=== PATIENT | female | born 1965 | race Caucasian/White ===

== ENCOUNTER 2017-06-16 15:44 | Observation (INO) | payer OTHER ==
[~2017-06-16] VITALS: Ht 157.5 cm; Wt 83.2 kg
[~2017-06-16 15:44] MED LIST: EST1; MOME50SP5; OMEP40CA
[2017-06-16] MEDS ORDERED: ASPIRIN 81 MG CHEW PO STA (16:04)
[2017-06-16 16:14] LABS: BASO % 0.4 %; BASO ABS # 0.03 K/uL (0-0.2); EOS % 1.4 %; EOS ABS # 0.12 K/uL (0-0.5); HEMATOCRIT 40.7 % (37-47); HEMOGLOBIN 14.5 g/dL (12.0-16.0); IG# 0.01 K/uL (0.00-0.02); LYMPH % 35.7 %; LYMPH ABS # 3.04 K/uL (1.2-3.4); MEAN CELL VOLUME 87.7 fL (80-100); MEAN CORPUSCULAR HEMOGLOBIN 31.3 pg (25-34); MEAN CORPUSCULAR HGB CONC 35.6 g/dl (32-36); MEAN PLATELET VOLUME 8.7 fL (7.4-10.4); MONO % 9.6 %; MONO ABS # 0.82 K/uL (0.11-0.59); NEUT % 52.8 %; NEUT ABS # 4.49 K/uL (1.4-6.5); PLATELET COUNT 359 K/uL (130-400); RED CELL DISTRIBUTION WIDTH CV 12.5 % (11.5-14.5); RED CELL DISTRIBUTION WIDTH SD 40.1 fL (36.4-46.3); WHITE BLOOD COUNT 8.51 K/uL (4.8-10.8)
--- NOTE | 2017-06-16 16:21 | DIAGNOSTIC IMAGING REPORT ---
CHEST ONE VIEW PORTABLE HISTORY: 51 years-old Female CHEST PAIN acute atypical chest pain COMPARISON: None available TECHNIQUE: Portable AP view of the chest FINDINGS: Cardiac mediastinal and hilar silhouettes are within normal limits. There is no pneumothorax, pleural effusion, focal airspace consolidation or overt pulmonary edema. Bones of the chest appear grossly intact. Degenerative changes of the shoulders and spine. IMPRESSION: No acute process. The above report was generated using voice recognition software. It may contain grammatical, syntax or spelling errors. Electronically signed by: Erick Dc M.D. 06/16/2017 4:20 PM Dictated Date/Time: 06/16/2017 4:19 PM
[2017-06-16 16:22] LABS: PTT PATIENT 24.8 SECONDS (21.0-31.0)
[2017-06-16 16:33] LABS: ALBUMIN 3.6 gm/dl (3.4-5.0); CREATININE 0.6 mg/dl (0.60-1.20); POTASSIUM 3.6 mmol/L (3.5-5.1)
[2017-06-16] MEDS: NITROGLYCERIN 0.4 MG SL PER TAB CHARGE SL PRN ×4 (16:35→21:39)
[2017-06-16 16:38] LABS: TOTAL PROTEIN 7.2 gm/dl (6.4-8.2)
[2017-06-16] MEDS ORDERED: LISI-461 PO (16:38)
[2017-06-16] MEDS ORDERED: ESTR2TAB PO (16:38)
[2017-06-16] MEDS ORDERED: PROBCAP PO (16:38)
[2017-06-16] MEDS ORDERED: FRS/40 PO (16:38)
[2017-06-16] MEDS ORDERED: LYSI500C2 PO (16:38)
[2017-06-16] MEDS ORDERED: TRIA55SP NAE (16:38)
[2017-06-16] MEDS ORDERED: POTA-65 PO (16:38)
--- NOTE | 2017-06-16 16:40 | EMERGENCY ROOM VISIT NOTE ---
History Report prepared by Albert: Kumar Jaimes Under the Supervision of: Dr. Vinay Llamas M.D. First contact with patient: 15:52 Chief Complaint: CARDIAC ASSESSMENT Stated Complaint: CHEST HEAVINESS, SOB, DISCOMFORT History of Present Illness The patient is a 51 year old female who presents to the Emergency Room with complaints of intermittent chest pain beginning a few days ago. She describes her pain as a feeling of "heaviness". She also complains of SOB and pain radiating up her neck into her jaw. The patient woke up with her symptoms, and they have been constant since. She rates her pain as an 8/10 in severity. Nothing improves her pain. Pt denies LOC, headache, fevers, chills, diaphoresis , visual changes, tearing pain radiating to the back, personal history or family history of aneurysm or pulmonary embolism, uncontrolled hypertension, leg swelling, coagulation abnormalities, prolonged travel, recent surgery or immobilization, nausea, vomiting, abdominal pain, melena, hematochezia, urinary symptoms, numbness, weakness, lymphadenopathy, rash, or other complaints. She is scheduled for a stress test next week. Her PCP is aware of her chest pain over the past few days, and told the patient to present to the ED today when her symptoms became constant. Source of History: patient Onset: A few days ago Position: chest Symptom Intensity: 8/10 Quality: other ("heaviness") Timing: intermittent Modifying Factors (Relieving): other (none) Associated Symptoms: + SOB Review of Systems See HPI for pertinent positives and negatives. A total of ten systems were reviewed and were otherwise negative. Past Medical & Surgical Medical Problems: (1) Hypertension (2) Skin cancer of face Surgical Problems: (1) S/P cholecystectomy (2) S/P hysterectomy (3) S/P lumbar spinal fusion Family History No pertinent family history stated. Social History Smoking Status: Never Smoker Marital Status: Housing Status: lives with family Current/Historical Medications Scheduled Estradiol (Estradiol), 2 MG PO DAILY Furosemide (Lasix), 40 MG PO DAILY Lisinopril (Zestril), 10 MG PO DAILY Potassium Chloride (Potassium Chloride ER), 20 MEQ PO DAILY Probiotic Product (Trip[employer]), 1 CAP PO DAILY Scheduled PRN Lysine (Lysine), 500 MG PO UD PRN for Cold Sores Triamcinolone Acetonide (Nasal ([facility] Nasal Allergy [place]), 2 SPRAYS GENET DAILY PRN for Allergy Symptoms Allergies Coded Allergies: Bupropion (Verified Allergy, Unknown, 03/22/09) Codeine (Verified Allergy, Unknown, 03/22/09) Oxycodone (Verified Allergy, Unknown, 03/22/09) Penicillins (Verified Allergy, Unknown, 03/22/09) Physical Exam Vital Signs Date Time Temp Pulse Resp B/P (MAP) Pulse Ox O2 Delivery O2 Flow Rate FiO2 06/16/17 16:45 80 142/85 06/16/17 16:40 80 144/85 06/16/17 16:36 75 14 150/93 98 Room Air 06/16/17 16:08 81 06/16/17 16:05 98 Room Air 06/16/17 16:05 97 Room Air 06/16/17 15:46 36.6 80 20 164/100 97 Room Air Physical Exam GENERAL: Awake, alert, well-appearing, in no distress HENT: Normocephalic, atraumatic. Oropharynx unremarkable. EYES: Normal conjunctiva. Sclera non-icteric. NECK: Supple. No nuchal rigidity. FROM. No masses. RESPIRATORY: Clear to auscultation. No wheezes. No rales. Normal respiratory effort. CARDIAC: Normal rate. Normal rhythm. No murmurs. No rubs. Extremities warm and well perfused. Pulses equal. No JVD. GI: Soft, non-distended. No tenderness to palpation. No rebound or guarding. No masses. RECTAL: Deferred. MUSCULOSKELETAL: Atraumatic. Chest examination reveals mild left costal margin tenderness. The back is symmetrical on inspection without obvious abnormality. There is no CVA tenderness to palpation. No joint edema. LOWER EXTREMITIES: Calves are equal size bilaterally and non-tender. Trace edema bilaterally. No discoloration. NEURO: Normal sensorium. No sensory or motor deficits noted. SKIN: No rash or jaundice noted. Medical Decision & Procedures ER Provider Diagnostic Interpretation: Radiology results as stated below per my review and radiologist interpretation: CHEST ONE VIEW PORTABLE FINDINGS: Cardiac mediastinal and hilar silhouettes are within normal limits. There is no pneumothorax, pleural effusion, focal airspace consolidation or overt pulmonary edema. Bones of the chest appear grossly intact. Degenerative changes of the shoulders and spine. IMPRESSION: No acute process. The above report was generated using voice recognition software. It may contain grammatical, syntax or spelling errors. Electronically signed by: Erick Dc M.D. 06/16/2017 4:20 PM Laboratory Results 06/16/17 16:00 Red Blood Count 4.64, Mean Corpuscular Volume 87.7, Mean Corpuscular Hemoglobin 31.3, Mean Corpuscular Hemoglobin Concent 35.6, Mean Platelet Volume 8.7, Neutrophils (%) (Auto) 52.8, Lymphocytes (%) (Auto) 35.7, Monocytes (%) (Auto) 9.6, Eosinophils (%) (Auto) 1.4, Basophils (%) (Auto) 0.4, Neutrophils # (Auto) 4.49, Lymphocytes # (Auto) 3.04, Monocytes # (Auto) 0.82, Eosinophils # (Auto) 0.12, Basophils # (Auto) 0.03 06/16/17 16:00 Test 06/16/17 16:00 06/16/17 16:07 White Blood Count 8.51 K/uL (4.8-10.8) Red Blood Count 4.64 M/uL (4.2-5.4) Hemoglobin 14.5 g/dL (12.0-16.0) Hematocrit 40.7 % (37-47) Mean Corpuscular Volume 87.7 fL (80-100) Mean Corpuscular Hemoglobin 31.3 pg (25-34) Mean Corpuscular Hemoglobin Concent 35.6 g/dl (32-36) Platelet Count 359 K/uL (130-400) Mean Platelet Volume 8.7 fL (7.4-10.4) Neutrophils (%) (Auto) 52.8 % Lymphocytes (%) (Auto) 35.7 % Monocytes (%) (Auto) 9.6 % Eosinophils (%) (Auto) 1.4 % Basophils (%) (Auto) 0.4 % Neutrophils # (Auto) 4.49 K/uL (1.4-6.5) Lymphocytes # (Auto) 3.04 K/uL (1.2-3.4) Monocytes # (Auto) 0.82 K/uL (0.11-0.59) Eosinophils # (Auto) 0.12 K/uL (0-0.5) Basophils # (Auto) 0.03 K/uL (0-0.2) RDW Standard Deviation 40.1 fL (36.4-46.3) RDW Coefficient of Variation 12.5 % (11.5-14.5) Immature Granulocyte % (Auto) 0.1 % Immature Granulocyte # (Auto) 0.01 K/uL (0.00-0.02) Prothrombin Time 10.0 SECONDS (9.0-12.0) Prothromb Time International Ratio 1.0 (0.9-1.1) Activated Partial Thromboplast Time 24.8 SECONDS (21.0-31.0) Partial Thromboplastin Ratio 1.0 Anion Gap 5.0 mmol/L (3-11) Est Creatinine Clear Calc Drug Dose 109.3 ml/min Estimated GFR () 120.6 Estimated GFR (Non- 104.1 BUN/Creatinine Ratio 21.8 (10-20) Calcium Level 9.0 mg/dl (8.5-10.1) Total Bilirubin 0.3 mg/dl (0.2-1) Direct Bilirubin 0.1 mg/dl (0-0.2) Aspartate Amino Transf (AST/SGOT) 15 U/L (15-37) Alanine Aminotransferase (ALT/SGPT) 19 U/L (12-78) Alkaline Phosphatase 76 U/L (45-117) Total Creatine Kinase 32 U/L (26-192) Creatine Kinase MB 1.0 ng/ml (0.5-3.6) Creatine Kinase MB Ratio 3.1 (0-3.0) Total Protein 7.2 gm/dl (6.4-8.2) Albumin 3.6 gm/dl (3.4-5.0) Lipase 119 U/L (73-393) Bedside D-Dimer 444 ng/mlFEU (0-450) Bedside Troponin I < 0.030 ng/ml (0-0.045) Laboratory results reviewed by me Medications Administered Medications (Trade) Dose Ordered Sig/Monica Route Start Time Stop Time Status Last Admin Dose Admin Aspirin (Aspirin Chew) 324 mg NOW STAT PO 06/16/17 16:04 06/16/17 16:06 DC 06/16/17 16:34 324 MG Nitroglycerin (Nitrostat Tab) 0.4 mg Q5M PRN SL 06/16/17 16:15 07/16/17 16:14 06/16/17 16:45 0.4 MG Acetaminophen (Tylenol Tab) 1,000 mg NOW STAT PO 06/16/17 17:17 06/16/17 17:18 DC 06/16/17 17:22 1,000 MG ECG Per My Interpretation Indication: chest pain Rate (beats per minute): 80 Rhythm: normal sinus Findings: Q waves (Septal), left axis deviation, other (LVH.) ED Course 1601: The patient was evaluated in room A4B. A complete history and physical exam was performed. 1604: Ordered Aspirin Chew 324 mg PO. 1615: Ordered Nitrostat Tab 0.4 mg SL. 1717: Ordered Tylenol Tab 1000 mg PO. 1720: Upon reexamination, the patient was resting comfortably. I discussed the test results and treatment plan with her. The patient will be evaluated for further management. Medical Decision Triage Nursing notes reviewed and agree them. Additional history obtained from the family. The patient's history was concerning for chest pain. Differential diagnosis: Etiologies such as cardiac ischemia, aortic dissection, pulmonary embolism, pneumonia, pneumothorax, musculoskeletal, infections, pericarditis, myocarditis , esophageal rupture, gastrointestinal, as well as others were entertained. Physical examination: As above. ER treatment provided: Oral aspirin Sublingual nitroglycerin 3 On reassessment the patient felt better. Diagnostic interpretation by me: The electrocardiogram was negative for pathologic change. The labs revealed an unremarkable CBC and chemistry panel. A d-dimer was performed and it was negative. Based on Wells criteria and a negative dimer no further imaging for PE was performed. Imaging studies: Chest x-ray as above Patient had resolution of her chest pain with 3 nitroglycerin. She was comfortable. Given the history and treatment here for the management in the hospital will be necessary. Consultation: A consultation was placed with the hospitalist. The case was discussed and diagnostics were reviewed. The patient was evaluated in the ER for further treatment. Medication Reconcilliation Current Medication List: was personally reviewed by me Blood Pressure Screening Patient's blood pressure: Elevated blood pressure Blood pressure disposition: Referred to PCP Consults Consulting Physician: Dr. Chikis Lackey Impression Primary Impression: Substernal chest pain Scribe Attestation The scribe's documentation has been prepared under my direction and personally reviewed by me in its entirety. I confirm that the note above accurately reflects all work, treatment, procedures, and medical decision making performed by me. Departure Information Dispostion Being Evaluated By Hospitalist Referrals Larry Landry M.D. (PCP) Patient Instructions My [facility]
[2017-06-16] MEDS ORDERED: ACETAMINOPHEN 500 MG TAB PO STA (17:17)
[2017-06-16] MEDS ORDERED: ACETAMINOPHEN 325 MG TAB PO PRN (18:15)
[2017-06-16] MEDS ORDERED: ONDANSETRON INJ 2 MG/ML 2 ML VIAL IV PRN (18:15)
[2017-06-16] MEDS ORDERED: TRIAMCINOLONE ACET NASAL SPRAY 10.8ML BTL NAE PRN (18:30)
--- NOTE | 2017-06-16 18:33 | History and Physical ---
History & Physical Date & Time of Service: June 16, 2017 at 18:20 Chief Complaint: Chest Heaviness, Sob, Discomfort Primary Care Physician: Zoran Rebollar M.D.(JOYCE) History of Present Illness Source: patient She is a 51-year-old white female without significant past medical history except hypertension apparently has been complaining of chest heaviness with pain associated with dizziness and shortness of breath and sweating for the last 2 weeks. The symptoms has been on and off and sometimes aggravated by physical activity. Today after cleaning the house she has had severe pain associated with dizziness, shortness of breath and the pain radiated to the neck on the right side. The pain was relieved to some extent with sublingual nitro 2. Her initial EKG, chest x-ray and cardiac enzymes were unremarkable. Given the pain suggestive of angina she was admitted to telemetry unit for observation and possible stress test tomorrow morning Past Medical/Surgical History Medical Problems: (1) Chest pain (2) Hypertension (3) Skin cancer of face Surgical Problems: (1) S/P cholecystectomy (2) S/P hysterectomy (3) S/P lumbar spinal fusion Family History Family history significant for father has asthma and also diabetes and her mother has hypertension and thyroid disorder Social History Smoking Status: Never Smoker Smokeless Tobacco Use: No Drug Use: none Marital Status: Housing status: lives with significant other Immunizations History of Tetanus Vaccine?: Yes Allergies Coded Allergies: Bupropion (Verified Allergy, Unknown, 03/22/09) Codeine (Verified Allergy, Unknown, 03/22/09) Oxycodone (Verified Allergy, Unknown, 03/22/09) Penicillins (Verified Allergy, Unknown, 03/22/09) Home Medications Scheduled Estradiol (Estradiol), 2 MG PO DAILY Furosemide (Lasix), 40 MG PO DAILY Lisinopril (Zestril), 10 MG PO DAILY Potassium Chloride (Potassium Chloride ER), 20 MEQ PO DAILY Probiotic Product ([employer]), 1 CAP PO DAILY Scheduled PRN Lysine (Lysine), 500 MG PO UD PRN for Cold Sores Triamcinolone Acetonide (Nasal ([facility] Nasal Allergy [place]), 2 SPRAYS GENET DAILY PRN for Allergy Symptoms Review of Systems Constitutional: + sweats Respiratory: + shortness of breath Cardiovascular: + chest pain Physical Exam Vital Signs Date Time Temp Pulse Resp B/P (MAP) Pulse Ox O2 Delivery O2 Flow Rate FiO2 06/16/17 16:45 80 142/85 06/16/17 16:40 80 144/85 06/16/17 16:36 75 14 150/93 98 Room Air 06/16/17 16:08 81 06/16/17 16:05 98 Room Air 06/16/17 16:05 97 Room Air 06/16/17 15:46 36.6 80 20 164/100 97 Room Air General Appearance: no apparent distress Head: normocephalic Eyes: normal inspection ENT: normal ENT inspection Neck: supple Respiratory/Chest: chest non-tender, lungs clear, normal breath sounds Cardiovascular: regular rate, rhythm, no edema, no gallop Abdomen/GI: normal bowel sounds, non tender, soft, no organomegaly Back: normal inspection Extremities/Musculoskelatal: normal inspection Neurologic/Psych: no motor/sensory deficits Skin: normal color Lymphatic: no adenopathy Diagnostics Laboratory Results Results Past 24 Hours Test 06/16/17 16:00 06/16/17 16:07 Range/Units White Blood Count 8.51 4.8-10.8 K/uL Red Blood Count 4.64 4.2-5.4 M/uL Hemoglobin 14.5 12.0-16.0 g/dL Hematocrit 40.7 37-47 % Mean Corpuscular Volume 87.7 80-100 fL Mean Corpuscular Hemoglobin 31.3 25-34 pg Mean Corpuscular Hemoglobin Concent 35.6 32-36 g/dl Platelet Count 359 130-400 K/uL Mean Platelet Volume 8.7 7.4-10.4 fL Neutrophils (%) (Auto) 52.8 % Lymphocytes (%) (Auto) 35.7 % Monocytes (%) (Auto) 9.6 % Eosinophils (%) (Auto) 1.4 % Basophils (%) (Auto) 0.4 % Neutrophils # (Auto) 4.49 1.4-6.5 K/uL Lymphocytes # (Auto) 3.04 1.2-3.4 K/uL Monocytes # (Auto) 0.82 0.11-0.59 K/uL Eosinophils # (Auto) 0.12 0-0.5 K/uL Basophils # (Auto) 0.03 0-0.2 K/uL RDW Standard Deviation 40.1 36.4-46.3 fL RDW Coefficient of Variation 12.5 11.5-14.5 % Immature Granulocyte % (Auto) 0.1 % Immature Granulocyte # (Auto) 0.01 0.00-0.02 K/uL Prothrombin Time 10.0 9.0-12.0 SECONDS Prothromb Time International Ratio 1.0 0.9-1.1 Activated Partial Thromboplast Time 24.8 21.0-31.0 SECONDS Partial Thromboplastin Ratio 1.0 Sodium Level 138 136-145 mmol/L Potassium Level 3.6 3.5-5.1 mmol/L Chloride Level 104 98-107 mmol/L Carbon Dioxide Level 29 21-32 mmol/L Anion Gap 5.0 3-11 mmol/L Blood Urea Nitrogen 13 7-18 mg/dl Creatinine 0.60 0.60-1.20 mg/dl Est Creatinine Clear Calc Drug Dose 109.3 ml/min Estimated GFR () 120.6 Estimated GFR (Non- 104.1 BUN/Creatinine Ratio 21.8 10-20 Random Glucose 89 70-99 mg/dl Calcium Level 9.0 8.5-10.1 mg/dl Total Bilirubin 0.3 0.2-1 mg/dl Direct Bilirubin 0.1 0-0.2 mg/dl Aspartate Amino Transf (AST/SGOT) 15 15-37 U/L Alanine Aminotransferase (ALT/SGPT) 19 12-78 U/L Alkaline Phosphatase 76 45-117 U/L Total Creatine Kinase 32 26-192 U/L Creatine Kinase MB 1.0 0.5-3.6 ng/ml Creatine Kinase MB Ratio 3.1 0-3.0 Total Protein 7.2 6.4-8.2 gm/dl Albumin 3.6 3.4-5.0 gm/dl Lipase 119 73-393 U/L Bedside D-Dimer 444 0-450 ng/mlFEU Bedside Troponin I < 0.030 0-0.045 ng/ml CXR normal Normal EKG Impression Assessment and Plan CHEST PAIN Presentation seems to be atypical Pain has been going on for last 2 weeks off and on with and without exertion Initial EKG and troponin unremarkable Will observe in telemetry unit Serial cardiac enzymes, EKG and stress echo in the morning if ruled out Will give nitro for pain control and other symptomatic medications HYPERTENSION Has been on lisinopril Blood pressure is controlled Continue lisinopril We will hold furosemide and potassium for now ALLERGIC RHINITIS No acute symptoms Continue nasal spray DVT prophylaxis with Lovenox CODE STATUS-she will be full code In my clinical assessment the beneficially meets criteria as per CMS for 2 MIDNIGHT STAY in the hospital Resuscitation Status VTE Prophylaxis Will order VTE Prophylaxis: Yes
[2017-06-16] MEDS ORDERED: IV FLUIDS COMPLETED PRN (19:00)
[2017-06-16] MEDS ORDERED: NSS + 20MEQ KCL 1000ML 1,000 ML IV SCH (21:00)
[2017-06-16 21:17] VITALS: BP 123/73; PULSE 68; TEMP 36.6; O2SAT 96; Ht 157.5 cm; Wt 83.2 kg
[2017-06-16] MEDS ORDERED: TRAMADOL HCL 50 MG TAB PO PRN (21:30)
[2017-06-16] MEDS ORDERED: MoRPHine SULFATE 2 MG/ML CARP IV PRN (21:30)
[2017-06-16] MEDS: ENOXAPARIN 40 MG/0.4 ML SYR SC SCH (21:34)
[2017-06-16 23:10] VITALS: BP 114/70; PULSE 72; TEMP 36.5; O2SAT 97
[2017-06-17] VITALS (10 sets, daily range): BP systolic 99–146; BP diastolic 63–88; PULSE 64–74; TEMP 36.4–36.7; O2SAT 95–97
[2017-06-17 06:55] LABS: HEMATOCRIT 37.6 % (37-47); HEMOGLOBIN 13.1 g/dL (12.0-16.0); MEAN CELL VOLUME 88.5 fL (80-100); MEAN CORPUSCULAR HEMOGLOBIN 30.8 pg (25-34); MEAN CORPUSCULAR HGB CONC 34.8 g/dl (32-36); MEAN PLATELET VOLUME 8.5 fL (7.4-10.4); PLATELET COUNT 294 K/uL (130-400); RED CELL DISTRIBUTION WIDTH CV 12.5 % (11.5-14.5); RED CELL DISTRIBUTION WIDTH SD 40.1 fL (36.4-46.3); WHITE BLOOD COUNT 5.03 K/uL (4.8-10.8)
[2017-06-17 07:32] LABS: CALCIUM 8.1 mg/dl (8.5-10.1); CREATININE 0.54 mg/dl (0.60-1.20); POTASSIUM 3.8 mmol/L (3.5-5.1)
[2017-06-17] MEDS: NITROGLYCERIN 0.4 MG SL PER TAB CHARGE SL PRN ×2 (07:57→08:03)
[2017-06-17] MEDS ORDERED: METOPROLOL TARTRATE 25 MG TAB PO ONE (11:40)
[2017-06-17] MEDS ORDERED: PANTOprazole SOD 40 MG TAB PO STA (11:47)
--- NOTE | 2017-06-17 11:47 | Progress Note ---
Internal Med Progress Note Date of Service: June 17, 2017. Provider Documentation: SUBJECTIVE: The patient was seen and examined in telemetry unit. She was admitted with chest pain on and off for the last 2 weeks and the pain got worse yesterday She has had some pain this morning again but EKG and cardiac enzymes remained unremarkable Has had stress echo this morning and that is negative OBJECTIVE: Vital Signs-as noted below Exam: General-no apparent distress Eyes-normal ENT-normal Neck-supple Lungs-clear to auscultate bilaterally Heart-regular Abdomen-benign, soft, nontender, bowel sounds present Extremities-negative for any edema Neuro-alert, awake and oriented 3 No focal neuro deficit Lab data as noted below. ASSESSMENT & PLAN: CHEST PAIN Presentation seems to be atypical Pain has been going on for last 2 weeks off and on with and without exertion Initial EKG and troponin unremarkable Will observe in telemetry unit Serial cardiac enzymes, EKG and stress echo in the morning if ruled out Status post stress echo this morning Hypertensive response with some chest pain but negative EKG and echocardiogram We will put her 1 small dose of beta-genoveva and observe overnight HYPERTENSION Has been on lisinopril Blood pressure is controlled Continue lisinopril We will hold furosemide and potassium for now Blood pressure is controlled, hypertensive response with stress echo Small dose of beta-genoveva added for better control of blood pressure ALLERGIC RHINITIS No acute symptoms Continue nasal spray DVT prophylaxis with Lovenox CODE STATUS-she will be full code Likely home this evening or tomorrow morning Vital Signs: Date Time Temp Pulse Resp B/P (MAP) Pulse Ox O2 Delivery O2 Flow Rate FiO2 06/17/17 08:15 36.6 67 18 130/80 (97) 96 06/17/17 08:10 71 137/79 (98) 06/17/17 08:03 74 146/81 (102) 06/17/17 07:57 70 133/88 (103) 06/17/17 04:00 36.5 67 16 107/67 (80) 97 Nasal Cannula 1.0 06/17/17 04:00 97 Nasal Cannula 1.0 06/17/17 00:01 96 Nasal Cannula 1.0 06/16/17 23:10 36.5 72 18 114/70 (85) 97 Nasal Cannula 1.0 06/16/17 21:17 36.6 68 20 123/73 96 Room Air 06/16/17 19:28 70 20 114/70 99 06/16/17 18:29 73 20 127/78 98 Room Air 06/16/17 16:45 80 142/85 06/16/17 16:40 80 144/85 06/16/17 16:36 75 14 150/93 98 Room Air 06/16/17 16:08 81 06/16/17 16:05 98 Room Air 06/16/17 16:05 97 Room Air 06/16/17 15:46 36.6 80 20 164/100 97 Room Air Lab Results: Results Past 24 Hours Test 06/16/17 16:00 06/16/17 16:07 06/16/17 19:14 06/17/17 00:20 Range/Units White Blood Count 8.51 4.8-10.8 K/uL Red Blood Count 4.64 4.2-5.4 M/uL Hemoglobin 14.5 12.0-16.0 g/dL Hematocrit 40.7 37-47 % Mean Corpuscular Volume 87.7 80-100 fL Mean Corpuscular Hemoglobin 31.3 25-34 pg Mean Corpuscular Hemoglobin Concent 35.6 32-36 g/dl Platelet Count 359 130-400 K/uL Mean Platelet Volume 8.7 7.4-10.4 fL Neutrophils (%) (Auto) 52.8 % Lymphocytes (%) (Auto) 35.7 % Monocytes (%) (Auto) 9.6 % Eosinophils (%) (Auto) 1.4 % Basophils (%) (Auto) 0.4 % Neutrophils # (Auto) 4.49 1.4-6.5 K/uL Lymphocytes # (Auto) 3.04 1.2-3.4 K/uL Monocytes # (Auto) 0.82 0.11-0.59 K/uL Eosinophils # (Auto) 0.12 0-0.5 K/uL Basophils # (Auto) 0.03 0-0.2 K/uL RDW Standard Deviation 40.1 36.4-46.3 fL RDW Coefficient of Variation 12.5 11.5-14.5 % Immature Granulocyte % (Auto) 0.1 % Immature Granulocyte # (Auto) 0.01 0.00-0.02 K/uL Prothrombin Time 10.0 9.0-12.0 SECONDS Prothromb Time International Ratio 1.0 0.9-1.1 Activated Partial Thromboplast Time 24.8 21.0-31.0 SECONDS Partial Thromboplastin Ratio 1.0 Sodium Level 138 136-145 mmol/L Potassium Level 3.6 3.5-5.1 mmol/L Chloride Level 104 98-107 mmol/L Carbon Dioxide Level 29 21-32 mmol/L Anion Gap 5.0 3-11 mmol/L Blood Urea Nitrogen 13 7-18 mg/dl Creatinine 0.60 0.60-1.20 mg/dl Est Creatinine Clear Calc Drug Dose 109.3 ml/min Estimated GFR () 120.6 Estimated GFR (Non- 104.1 BUN/Creatinine Ratio 21.8 10-20 Random Glucose 89 70-99 mg/dl Calcium Level 9.0 8.5-10.1 mg/dl Total Bilirubin 0.3 0.2-1 mg/dl Direct Bilirubin 0.1 0-0.2 mg/dl Aspartate Amino Transf (AST/SGOT) 15 15-37 U/L Alanine Aminotransferase (ALT/SGPT) 19 12-78 U/L Alkaline Phosphatase 76 45-117 U/L Total Creatine Kinase 32 26-192 U/L Creatine Kinase MB 1.0 0.5-3.6 ng/ml Creatine Kinase MB Ratio 3.1 0-3.0 Total Protein 7.2 6.4-8.2 gm/dl Albumin 3.6 3.4-5.0 gm/dl Lipase 119 73-393 U/L Bedside D-Dimer 444 0-450 ng/mlFEU Bedside Troponin I < 0.030 0-0.045 ng/ml Troponin I < 0.015 < 0.015 0-0.045 ng/ml Test 06/17/17 06:35 06/17/17 08:28 Range/Units White Blood Count 5.03 4.8-10.8 K/uL Red Blood Count 4.25 4.2-5.4 M/uL Hemoglobin 13.1 12.0-16.0 g/dL Hematocrit 37.6 37-47 % Mean Corpuscular Volume 88.5 80-100 fL Mean Corpuscular Hemoglobin 30.8 25-34 pg Mean Corpuscular Hemoglobin Concent 34.8 32-36 g/dl RDW Standard Deviation 40.1 36.4-46.3 fL RDW Coefficient of Variation 12.5 11.5-14.5 % Platelet Count 294 130-400 K/uL Mean Platelet Volume 8.5 7.4-10.4 fL Sodium Level 137 136-145 mmol/L Potassium Level 3.8 3.5-5.1 mmol/L Chloride Level 107 98-107 mmol/L Carbon Dioxide Level 28 21-32 mmol/L Anion Gap 2.0 3-11 mmol/L Blood Urea Nitrogen 14 7-18 mg/dl Creatinine 0.54 0.60-1.20 mg/dl Est Creatinine Clear Calc Drug Dose 121.2 ml/min Estimated GFR () 124.9 Estimated GFR (Non- 107.7 BUN/Creatinine Ratio 25.3 10-20 Random Glucose 93 70-99 mg/dl Calcium Level 8.1 8.5-10.1 mg/dl Magnesium Level 2.0 1.8-2.4 mg/dl Troponin I < 0.015 < 0.015 0-0.045 ng/ml
[2017-06-17] MEDS ORDERED: NURSING VERBAL MED ORDER ONE (12:15)
[2017-06-17] MEDS: LISINOPRIL 10 MG TAB PO SCH (13:15)
[2017-06-17] MEDS: ASPIRIN 81 MG ECTAB PO SCH (13:15)
--- NOTE | 2017-06-17 13:20 | EXERCISE STRESS ECHO ---
*NOTICE TO RECEIVING LIBERTARIAN AGENCY This information is strictly Confidential and protected under [place] law. [place] law prohibits you from making any further disclosure of this information unless further disclosure is expressly permitted by the written consent of the person to whom it pertains or is authorized by law. A general authorization for the release of medical or other information is not sufficient for this purpose. Hospital accepts no responsibility if the information is made available to any other person, INCLUDING THE PATIENT. Interpretation Summary * Name: MICKY TONY Study Date: 06/17/2017 09:41 AM BP: 141/83 mmHg * Patient Location: C.2T\S\S241\S\2 HR: 74 * : 1965 (M/d/yyyy) Gender: Female Height: 62 in * Age: 51 yrs Ethnicity: [place] Weight: 186 lb * Ordering Physician: Deirdre Salazar * Referring Physician: Self, Referred * Performed By: America Neal R[facility] * * Reason For Study: Chest Pain * BSA: 1.9 m2 * Exercise capacity is average. * The stress echocardiogram is negative for inducible ischemia. * -- Conclusions -- * Resting wall motion: Normal. Stress wall motion: Appropriate increase in Left ventricular systolic function and decrease in cavity size. No stress induced segmental wall motion abnormalities. * Stress ECG: No ST changes. No arrhythmias. * Patient experienced chest pain and dizziness throughout the stress test with chest pain worsening in the recovery phase. Blood pressure and heart rate response was normal and EKG and echocardiographic imaging revealed no acute changes during complaints Procedure Details * ECHOEX, CPT #[id number] * ECHO COLOR FLOW, CPT #[id number] * ECHO DOPPLER, CPT #[id number] Left Ventricle * The left ventricle is normal in size. * There is borderline concentric left ventricular hypertrophy. * Ejection Fraction = 55-60%. * Left ventricular systolic function is normal. * The left ventricular wall motion is normal at rest. * The left ventricular ejection fraction increases normally with stress. The left ventricular end-systolic cavity size reduces post-stress (normal response). The left ventricular wall motion with stress is normal. * Resting wall motion: Normal. Stress wall motion: Appropriate increase in Left ventricular systolic function and decrease in cavity size. No stress induced segmental wall motion abnormalities. Right Ventricle * The right ventricle is normal in size and function. Atria * The left atrial size is normal. * Right atrial size is normal. * No ASD detected; PFO is not assessed. Mitral Valve * The mitral valve is normal. * There is no mitral valve stenosis. * Significant mitral regurgitation is absent. Tricuspid Valve * The tricuspid valve is normal. * There is no tricuspid stenosis. * Significant tricuspid regurgitation is absent. Aortic Valve * The aortic valve is trileaflet. * Aortic valve sclerosis mild, without significant aortic valvular stenosis. * Aortic stenosis is absent. * Trace aortic regurgitation. Pulmonic Valve * The pulmonary valve is not well seen, but the Doppler examination is normal without significant regurgitation or stenosis. Great Vessels * The aortic root and proximal ascending aorta are normal sized. Pericardium * There is no pericardial effusion. Stress Parameters * Normal baseline electrocardiogram. * Stress ECG: No ST changes. No arrhythmias. * The stress portion of this study was personally supervised by the undersigned interpreting physician. * Rest heart rate was '74' BPM. * Rest blood pressure was '141/83' * Maximum heart rate achieved was 150 bpm. * Maximum heart rate was 89 % of maximum age-predicted heart rate. * Maximum blood pressure was '182/93' * Total exercise time was '4:36' * Maximum exercise MET level achieved was '6.5' METS * Maximum treadmill speed was '2.5' miles per hour. * Maximum treadmill elevation was '12'% grade. * Exercise was terminated due to 'fatigue after achieving target heart rate' * Patient experienced chest pain and dizziness throughout the stress test with chest pain worsening in the recovery phase. Blood pressure and heart rate response was normal and EKG and echocardiographic imaging revealed no acute changes during complaints Left Ventricular Diastolic Function * Grade I diastolic dysfunction, (abnormal relaxation pattern). MMode 2D Measurements and Calculations IVSd 0.97 cm IVSs 1.3 cm LVIDd 4.6 cm LVIDs 2.7 cm LVPWd 0.94 cm LVPWs 1.3 cm IVS/LVPW 1.0 FS 41.1 % EDV(Teich) 95.7 ml ESV(Teich) 26.7 ml EF(Teich) 72.1 % EDV(cubed) 95.3 ml ESV(cubed) 19.4 ml EF(cubed) 79.6 % % IVS thick 37.1 % % LVPW thick 34.2 % LV mass(C)d 148.2 grams LV mass(C)dI 80.0 grams/m\S\2 LV mass(C)s 107.6 grams LV mass(C)sI 58.0 grams/m\S\2 SV(Teich) 69.0 ml SI(Teich) 37.2 ml/m\S\2 SV(cubed) 75.9 ml SI(cubed) 40.9 ml/m\S\2 Ao root diam 3.5 cm Ao root area 9.7 cm\S\2 ACS 2.1 cm LA dimension 4.1 cm asc Aorta Diam 3.4 cm LA/Ao 1.2 LVAd ap4 37.5 cm\S\2 LVLd ap4 8.5 cm EDV(MOD-sp4) 134.9 ml EDV(sp4-el) 139.8 ml LVAs ap4 24.2 cm\S\2 LVLs ap4 7.3 cm ESV(MOD-sp4) 66.5 ml ESV(sp4-el) 67.9 ml EF(MOD-sp4) 50.7 % EF(sp4-el) 51.4 % LVAd ap2 30.7 cm\S\2 LVLd ap2 8.0 cm EDV(MOD-sp2) 100.4 ml EDV(sp2-el) 100.1 ml LVAs ap2 18.4 cm\S\2 LVLs ap2 6.6 cm ESV(MOD-sp2) 45.6 ml ESV(sp2-el) 43.4 ml EF(MOD-sp2) 54.6 % EF(sp2-el) 56.7 % LVLd %diff -6.47 % EDV(MOD-bp) 120.4 ml LVLs %diff -10.21 % ESV(MOD-bp) 58.2 ml EF(MOD-bp) 51.7 % SV(MOD-sp4) 68.5 ml SI(MOD-sp4) 36.9 ml/m\S\2 SV(MOD-sp2) 54.8 ml SI(MOD-sp2) 29.6 ml/m\S\2 SV(MOD-bp) 62.2 ml SI(MOD-bp) 33.6 ml/m\S\2 SV(sp4-el) 71.9 ml SI(sp4-el) 38.8 ml/m\S\2 SV(sp2-el) 56.7 ml SI(sp2-el) 30.6 ml/m\S\2 Doppler Measurements and Calculations MV E max dante 69.0 cm/sec MV A max dante 92.3 cm/sec MV E/A 0.75 MV P1/2t max dante 81.4 cm/sec MV P1/2t 71.0 msec MVA(P1/2t) 3.1 cm\S\2 MV dec slope 336.0 cm/sec\S\2 MV dec time 0.30 sec Ao V2 max 143.4 cm/sec Ao max PG 8.2 mmHg Ao max PG (full) 4.2 mmHg AI max dante 491.3 cm/sec AI max PG 96.7 mmHg AI dec slope 277.8 cm/sec\S\2 AI P1/2t 518.0 msec LV V1 max PG 4.0 mmHg LV V1 max 100.5 cm/sec PA V2 max 89.7 cm/sec PA max PG 3.2 mmHg PI max dante 141.5 cm/sec PI max PG 8.0 mmHg PI dec slope 99.5 cm/sec\S\2 PI P1/2t 416.5 msec TR max dante 188.1 cm/sec
[2017-06-17] MEDS: METOPROLOL TARTRATE 25 MG TAB PO SCH (21:33)
[2017-06-17] MEDS: ENOXAPARIN 40 MG/0.4 ML SYR SC SCH (21:33)
[2017-06-18 03:34] VITALS: BP 101/65; PULSE 70; TEMP 36.6; O2SAT 97
[2017-06-18 07:01] VITALS: BP 120/79; PULSE 67; TEMP 36.7; O2SAT 96
[2017-06-18] MEDS: ASPIRIN 81 MG ECTAB PO SCH (07:39)
[2017-06-18] MEDS: METOPROLOL TARTRATE 25 MG TAB PO SCH (07:39)
[2017-06-18] MEDS: LISINOPRIL 10 MG TAB PO SCH (07:40)
[2017-06-18] MEDS ORDERED: PANTOprazole SOD 40 MG TAB PO SCH (09:00)
[2017-06-18 10:53] VITALS: BP 124/82; PULSE 62; TEMP 36.6; O2SAT 98
--- NOTE | 2017-06-18 11:18 | Progress Note ---
Internal Med Progress Note Date of Service: June 18, 2017. Provider Documentation: SUBJECTIVE: The patient was seen and examined in telemetry unit. She was admitted with chest pain on and off for the last 2 weeks and the pain got worse yesterday She has had some pain this morning again but EKG and cardiac enzymes remained unremarkable Has had stress echo this morning and that is negative 06/18 No more chest pain reported Denies any symptoms this AM Ready to be discharged OBJECTIVE: Vital Signs-as noted below Exam: General-no apparent distress Eyes-normal ENT-normal Neck-supple Lungs-clear to auscultate bilaterally Heart-regular Abdomen-benign, soft, nontender, bowel sounds present Extremities-negative for any edema Neuro-alert, awake and oriented 3 No focal neuro deficit Lab data as noted below. ASSESSMENT & PLAN: CHEST PAIN Presentation seems to be atypical Pain has been going on for last 2 weeks off and on with and without exertion Initial EKG and troponin unremarkable Will observe in telemetry unit Serial cardiac enzymes, EKG and stress echo in the morning if ruled out Status post stress echo this morning Hypertensive response with some chest pain but negative EKG and echocardiogram We will put her 1 small dose of beta-genoveva and observe overnight Stress ECHO:: * Resting wall motion: Normal. Stress wall motion: Appropriate increase in Left ventricular systolic function and decrease in cavity size. No stress induced segmental wall motion abnormalities. * Stress ECG: No ST changes. No arrhythmias. * Patient experienced chest pain and dizziness throughout the stress test with chest pain worsening in the recovery phase. Blood pressure and heart rate response was normal and EKG and echocardiographic imaging revealed no acute changes during complaints Denies any more chest pain Ready to go home today HYPERTENSION Has been on lisinopril Blood pressure is controlled Continue lisinopril We will hold furosemide and potassium for now Blood pressure is controlled, hypertensive response with stress echo Small dose of beta-genoveva added for better control of blood pressure ALLERGIC RHINITIS No acute symptoms Continue nasal spray DVT prophylaxis with Lovenox CODE STATUS-she will be full code Likely home this evening or tomorrow morning Discharge today Vital Signs: Date Time Temp Pulse Resp B/P (MAP) Pulse Ox O2 Delivery O2 Flow Rate FiO2 06/18/17 07:01 36.7 67 20 120/79 (93) 96 Room Air 06/18/17 03:34 36.6 70 16 101/65 (77) 97 06/17/17 23:51 36.4 68 18 99/63 (75) 97 06/17/17 19:12 36.6 64 20 118/82 (94) 97 Room Air 06/17/17 15:29 36.7 68 20 120/84 (96) 95 06/17/17 11:55 36.6 72 19 120/73 (89) 96
[2017-06-18] MEDS ORDERED: NTRSLP4 SL (11:21)
[2017-06-18] MEDS ORDERED: LPR25 PO (11:21)
--- NOTE | 2017-06-18 11:22 | Discharge Instructions ---
Discharge Instructions Date of Service June 18, 2017. Admission Reason for Admission: Chest Pain Discharge Discharge Diagnosis / Problem: Chest pain-negative Stress ECHO Discharge Goals Goal(s): Prevent Disease Progression Activity Recommendations Activity Limitations: resume your previous activity . Instructions / Follow-Up Instructions / Follow-Up Please keep appointment with your [facility] Current Hospital Diet Patient's current hospital diet: AHA Diet (Heart Healthy) Discharge Diet Recommended Diet: Regular Diet Pending Studies Studies pending at discharge: no Medical Emergencies . Who to Call and When: Medical Emergencies: If at any time you feel your situation is an emergency, please call 911 immediately. . Non-Emergent Contact Non-Emergency issues call your: Primary Care Provider . Past History Medical & Surgical History: (1) Substernal chest pain (2) Hypertension (3) Skin cancer of face (4) S/P cholecystectomy (5) S/P lumbar spinal fusion (6) S/P hysterectomy . "Provider Documentation" section prepared by Deirdre Salazar. .
[2017-06-18 12:03] VITALS: BP 124/82; PULSE 62; TEMP 36.6; O2SAT 98
--- NOTE | 2017-06-18 17:03 | Discharge Summary ---
Discharge Summary Date of Service June 18, 2017. Discharge Summary Admission Date: June 16, 2017 at 18:16 Discharge Date: June 18, 2017 Discharge Disposition: Home Principal Diagnosis: Chest pain-negative Stress ECHO Secondary Diagnoses/Problems: Please see H&P and Hospital progress note Medication Reconciliation New Medications: Metoprolol Tartrate (Lopressor) 25 Mg Tab 12.5 MG PO BID for 30 Days, #30 TAB Nitroglycerin (Nitrostat) 0.4 Mg/1 Tab Subl 0.4 MG SL UD PRN for Chest Pain for 30 Days, #25 TAB Continued Medications: Estradiol (Estradiol) 2 Mg Tab 2 MG PO DAILY, TAB Furosemide (Lasix) 40 Mg Tab 40 MG PO DAILY, TAB Lisinopril (Zestril) 10 Mg Tab 10 MG PO DAILY, TAB Lysine (Lysine) 500 Mg Cap 500 MG PO UD PRN for Cold Sores TAKE PER PACKAGE DIRECTIONS Potassium Chloride (Potassium Chloride ER) 20 Meq Tab 20 MEQ PO DAILY Probiotic Product (Creative Allies) 1 Cap Cap 1 CAP PO DAILY Triamcinolone Acetonide (Nasal ([facility] Nasal Allergy [place]) 55 Mcg/Act Spr 2 SPRAYS GENET DAILY PRN for Allergy Symptoms Admission Information HPI (per Admitting provider): She is a 51-year-old white female without significant past medical history except hypertension apparently has been complaining of chest heaviness with pain associated with dizziness and shortness of breath and sweating for the last 2 weeks. The symptoms has been on and off and sometimes aggravated by physical activity. Today after cleaning the house she has had severe pain associated with dizziness, shortness of breath and the pain radiated to the neck on the right side. The pain was relieved to some extent with sublingual nitro 2. Her initial EKG, chest x-ray and cardiac enzymes were unremarkable. Given the pain suggestive of angina she was admitted to telemetry unit for observation and possible stress test tomorrow morning Past Medical/Surgical History Medical Problems: (1) Chest pain (2) Hypertension (3) Skin cancer of face Surgical Problems: (1) S/P cholecystectomy (2) S/P hysterectomy (3) S/P lumbar spinal fusion Family History Family history significant for father has asthma and also diabetes and her mother has hypertension and thyroid disorder Social History Smoking Status: Never Smoker Smokeless Tobacco Use: No Drug Use: none Marital Status: Housing status: lives with significant other Immunizations History of Tetanus Vaccine?: Yes Allergies Coded Allergies: Bupropion (Verified Allergy, Unknown, 03/22/09) Codeine (Verified Allergy, Unknown, 03/22/09) Oxycodone (Verified Allergy, Unknown, 03/22/09) Penicillins (Verified Allergy, Unknown, 03/22/09) Home Medications Scheduled Estradiol (Estradiol), 2 MG PO DAILY Furosemide (Lasix), 40 MG PO DAILY Lisinopril (Zestril), 10 MG PO DAILY Potassium Chloride (Potassium Chloride ER), 20 MEQ PO DAILY Probiotic Product (Creative Allies), 1 CAP PO DAILY Scheduled PRN Lysine (Lysine), 500 MG PO UD PRN for Cold Sores Triamcinolone Acetonide (Nasal ([facility] Nasal Allergy [place]), 2 SPRAYS GENET DAILY PRN for Allergy Symptoms Review of Systems Constitutional: + sweats Respiratory: + shortness of breath Cardiovascular: + chest pain Physical Exam H&P v2 Physical Exam Vital Signs Date Time Temp Pulse Resp B/P (MAP) Pulse Ox O2 Delivery O2 Flow Rate FiO2 06/16/17 16:45 80 142/85 06/16/17 16:40 80 144/85 06/16/17 16:36 75 14 150/93 98 Room Air 06/16/17 16:08 81 06/16/17 16:05 98 Room Air 06/16/17 16:05 97 Room Air 06/16/17 15:46 36.6 80 20 164/100 97 Room Air General Appearance: no apparent distress Head: normocephalic Eyes: normal inspection ENT: normal ENT inspection Neck: supple Respiratory/Chest: chest non-tender, lungs clear, normal breath sounds Cardiovascular: regular rate, rhythm, no edema, no gallop Abdomen/GI: normal bowel sounds, non tender, soft, no organomegaly Back: normal inspection Extremities/Musculoskelatal: normal inspection Neurologic/Psych: no motor/sensory deficits Skin: normal color Lymphatic: no adenopathy Diagnostics H&P v2 Diagnostics Laboratory Results Results Past 24 Hours Test 06/16/17 16:00 06/16/17 16:07 Range/Units White Blood Count 8.51 4.8-10.8 K/uL Red Blood Count 4.64 4.2-5.4 M/uL Hemoglobin 14.5 12.0-16.0 g/dL Hematocrit 40.7 37-47 % Mean Corpuscular Volume 87.7 80-100 fL Mean Corpuscular Hemoglobin 31.3 25-34 pg Mean Corpuscular Hemoglobin Concent 35.6 32-36 g/dl Platelet Count 359 130-400 K/uL Mean Platelet Volume 8.7 7.4-10.4 fL Neutrophils (%) (Auto) 52.8 % Lymphocytes (%) (Auto) 35.7 % Monocytes (%) (Auto) 9.6 % Eosinophils (%) (Auto) 1.4 % Basophils (%) (Auto) 0.4 % Neutrophils # (Auto) 4.49 1.4-6.5 K/uL Lymphocytes # (Auto) 3.04 1.2-3.4 K/uL Monocytes # (Auto) 0.82 0.11-0.59 K/uL Eosinophils # (Auto) 0.12 0-0.5 K/uL Basophils # (Auto) 0.03 0-0.2 K/uL RDW Standard Deviation 40.1 36.4-46.3 fL RDW Coefficient of Variation 12.5 11.5-14.5 % Immature Granulocyte % (Auto) 0.1 % Immature Granulocyte # (Auto) 0.01 0.00-0.02 K/uL Prothrombin Time 10.0 9.0-12.0 SECONDS Prothromb Time International Ratio 1.0 0.9-1.1 Activated Partial Thromboplast Time 24.8 21.0-31.0 SECONDS Partial Thromboplastin Ratio 1.0 Sodium Level 138 136-145 mmol/L Potassium Level 3.6 3.5-5.1 mmol/L Chloride Level 104 98-107 mmol/L Carbon Dioxide Level 29 21-32 mmol/L Anion Gap 5.0 3-11 mmol/L Blood Urea Nitrogen 13 7-18 mg/dl Creatinine 0.60 0.60-1.20 mg/dl Est Creatinine Clear Calc Drug Dose 109.3 ml/min Estimated GFR () 120.6 Estimated GFR (Non- 104.1 BUN/Creatinine Ratio 21.8 10-20 Random Glucose 89 70-99 mg/dl Calcium Level 9.0 8.5-10.1 mg/dl Total Bilirubin 0.3 0.2-1 mg/dl Direct Bilirubin 0.1 0-0.2 mg/dl Aspartate Amino Transf (AST/SGOT) 15 15-37 U/L Alanine Aminotransferase (ALT/SGPT) 19 12-78 U/L Alkaline Phosphatase 76 45-117 U/L Total Creatine Kinase 32 26-192 U/L Creatine Kinase MB 1.0 0.5-3.6 ng/ml Creatine Kinase MB Ratio 3.1 0-3.0 Total Protein 7.2 6.4-8.2 gm/dl Albumin 3.6 3.4-5.0 gm/dl Lipase 119 73-393 U/L Bedside D-Dimer 444 0-450 ng/mlFEU Bedside Troponin I < 0.030 0-0.045 ng/ml CXR normal Normal EKG Impression H&P v2 Impression Assessment and Plan CHEST PAIN Presentation seems to be atypical Pain has been going on for last 2 weeks off and on with and without exertion Initial EKG and troponin unremarkable Will observe in telemetry unit Serial cardiac enzymes, EKG and stress echo in the morning if ruled out Will give nitro for pain control and other symptomatic medications HYPERTENSION Has been on lisinopril Blood pressure is controlled Continue lisinopril We will hold furosemide and potassium for now ALLERGIC RHINITIS No acute symptoms Continue nasal spray DVT prophylaxis with Lovenox CODE STATUS-she will be full code In my clinical assessment the beneficially meets criteria as per CMS for 2 MIDNIGHT STAY in the hospital Resuscitation Status VTE Prophylaxis Will order VTE Prophylaxis: Yes Physical Exam (per Admitting): General Appearance: no apparent distress Head: normocephalic Eyes: normal inspection ENT: normal ENT inspection Neck: supple Respiratory/Chest: chest non-tender, lungs clear, normal breath sounds Cardiovascular: regular rate, rhythm, no edema, no gallop Abdomen/GI: normal bowel sounds, non tender, soft, no organomegaly Back: normal inspection Extremities/Musculoskelatal: normal inspection Neurologic/Psych: no motor/sensory deficits Skin: normal color Lymphatic: no adenopathy Hospital Course CHEST PAIN Presentation seems to be atypical Pain has been going on for last 2 weeks off and on with and without exertion Initial EKG and troponin unremarkable Will observe in telemetry unit Serial cardiac enzymes, EKG and stress echo in the morning if ruled out Status post stress echo this morning Hypertensive response with some chest pain but negative EKG and echocardiogram We will put her 1 small dose of beta-genoveva and observe overnight Stress ECHO:: * Resting wall motion: Normal. Stress wall motion: Appropriate increase in Left ventricular systolic function and decrease in cavity size. No stress induced segmental wall motion abnormalities. * Stress ECG: No ST changes. No arrhythmias. * Patient experienced chest pain and dizziness throughout the stress test with chest pain worsening in the recovery phase. Blood pressure and heart rate response was normal and EKG and echocardiographic imaging revealed no acute changes during complaints Denies any more chest pain Ready to go home today HYPERTENSION Has been on lisinopril Blood pressure is controlled Continue lisinopril We will hold furosemide and potassium for now Blood pressure is controlled, hypertensive response with stress echo Small dose of beta-genoveva added for better control of blood pressure ALLERGIC RHINITIS No acute symptoms Continue nasal spray DVT prophylaxis with Lovenox CODE STATUS-she will be full code Likely home this evening or tomorrow morning Discharge today Total time spent on discharge = 35 minutes This includes examination of the patient, discharge planning, medication reconciliation, and communication with other providers. Discharge Instructions Date of Service June 18, 2017. Admission Reason for Admission: Chest Pain Discharge Discharge Diagnosis / Problem: Chest pain-negative Stress ECHO Discharge Goals Goal(s): Prevent Disease Progression Activity Recommendations Activity Limitations: resume your previous activity . Instructions / Follow-Up Instructions / Follow-Up Please keep appointment with your [facility] Current Hospital Diet Patient's current hospital diet: AHA Diet (Heart Healthy) Discharge Diet Recommended Diet: Regular Diet Pending Studies Studies pending at discharge: no Medical Emergencies . Who to Call and When: Medical Emergencies: If at any time you feel your situation is an emergency, please call 911 immediately. . Non-Emergent Contact Non-Emergency issues call your: Primary Care Provider . Past History Medical & Surgical History: (1) Substernal chest pain (2) Hypertension (3) Skin cancer of face (4) S/P cholecystectomy (5) S/P lumbar spinal fusion (6) S/P hysterectomy . "Provider Documentation" section prepared by Deirdre Salazar. . <Electronically signed by Deirdre Salazar M.D.> Additional Copies To Zoran Rebollar M.D. ([facility])
== END 2017-06-18 13:47 | disposition home or self-care (01) ==
LOC: C.EDB 15:45 → C.2T 18:16 → ENRESERV 19:19
PROVIDERS: ADMIT Internal Medicine; ATTEND Internal Medicine
DX: R07.9 Chest pain, unspecified (principal); I10 Essential (primary) hypertension; Z90.49 Acquired absence of other specified parts of digestive tract; Z90.710 Acquired absence of both cervix and uterus; Z98.890 Other specified postprocedural states; Z85.828 Personal history of other malignant neoplasm of skin; Z79.899 Other long term (current) drug therapy; Z88.5 Allergy status to narcotic agent; Z88.0 Allergy status to penicillin

== ENCOUNTER → 2017-09-17 | Outpatient (CLI) | payer OTHER ==
[~2017-09-17] MED LIST changes: -EST1; +ESTR2TAB PO; +LISI-461 PO; +LYSI500C2 PO; +METO25TA56 PO; -MOME50SP5; +NTRGSL/4 UT; -OMEP40CA; +POTA-65 PO; +PROBCAP PO; +PRVHFAIN INH; +TRIA55SP NAE
[2017-09-17 18:44] LABS: BASO % 0.4 %; BASO ABS # 0.03 K/uL (0-0.2); EOS % 2.2 %; EOS ABS # 0.18 K/uL (0-0.5); HEMATOCRIT 39.7 % (37-47); HEMOGLOBIN 13.9 g/dL (12.0-16.0); IG# 0.01 K/uL (0.00-0.02); LYMPH ABS # 3.45 K/uL (1.2-3.4); MEAN CELL VOLUME 88.2 fL (80-100); MEAN CORPUSCULAR HEMOGLOBIN 30.9 pg (25-34); MONO % 8.6 %; MONO ABS # 0.71 K/uL (0.11-0.59); NEUT % 46.7 %; NEUT ABS # 3.84 K/uL (1.4-6.5); PLATELET COUNT 326 K/uL (130-400); RED CELL DISTRIBUTION WIDTH CV 12.7 % (11.5-14.5); RED CELL DISTRIBUTION WIDTH SD 40.9 fL (36.4-46.3); WHITE BLOOD COUNT 8.22 K/uL (4.8-10.8)
[2017-09-17 18:53] LABS: INR 0.9 (0.9-1.1); PTT PATIENT 25.4 SECONDS (21.0-31.0)
[2017-09-17 19:12] LABS: ALBUMIN 3.3 gm/dl (3.4-5.0); ALKALINE PHOSPHATASE 71 U/L (45-117); ALT/SGPT 18 U/L (12-78); AST/SGOT 16 U/L (15-37); BLOOD UREA NITROGEN 12 mg/dl (7-18); CALCIUM 9.1 mg/dl (8.5-10.1); CARBON DIOXIDE 30 mmol/L (21-32); CREATININE 0.56 mg/dl (0.60-1.20); GLUCOSE 82 mg/dl (70-99); POTASSIUM 3.5 mmol/L (3.5-5.1); SODIUM 136 mmol/L (136-145); TOTAL PROTEIN 7.4 gm/dl (6.4-8.2)
== END | disposition home or self-care (01) ==
LOC: C.LAB 17:11
PROVIDERS: ATTEND Internal Medicine Pulmonary Disease
DX: J30.1 Allergic rhinitis due to pollen (principal)

== ENCOUNTER 2017-09-24 06:24 | Day surgery (SDC) | payer OTHER ==
[~2017-09-24] VITALS: Ht 157.5 cm; Wt 85.0 kg
[2017-09-24] VITALS (7 sets, daily range): BP systolic 121–141; BP diastolic 73–91; PULSE 63–106; TEMP 36.4–36.5; O2SAT 93–97; Ht 157.5 cm; Wt 85.0 kg
--- NOTE | 2017-09-24 08:04 | Pre Sedation Assessment ---
Pre Sedation Assessment General Date of Sedation: Sep 24, 2017. Vital Signs Past 12 Hours Date Time Temp Pulse Resp B/P (MAP) Pulse Ox O2 Delivery O2 Flow Rate FiO2 09/24/17 06:53 36.4 63 18 135/81 (99) 96 Room Air Pre-Sedation Airway Assessment Smoking Status: Never Smoker Hx of Sleep Apnea: Yes Short Thick Neck: No Thyro-mental Distance: > 3 Finger Breadths Oral Cavity: Capped Teeth Mallampati Classification: Class II ASA Classification: Class II NPO Status Date of Last Intake of Fluids: Sep 23, 2017 Time of Last Intake of Fluids: 1899 Date of Last Intake of Solids: Sep 23, 2017 Time of Last Intake of Solids: 1899 Procedure Planning Contraindications for Sedation: None Current Medications Reviewed: Yes Notes The planned sedation has been discussed with the patient. Informed Consent was obtained. I have identified the patient, determined the appropriateness of sedation and have assessed the patient immediately prior to the procedure. All medicine(s) and interventions are by my order.
--- NOTE | 2017-09-24 08:04 | History & Physical Bridge Note ---
H&P Re-Evaluation Bridge Note: I have examined the patient, reviewed the History & Physical and in the interval since the performance of the History & Physical I have noted the following changes of clinical significance: No changes noted
[2017-09-24] MEDS ORDERED: MIDAZOLAM HCL 5 MG/ML 1 ML VIAL IV ONE (08:42)
[2017-09-24] MEDS ORDERED: LIDOCAINE 4% INH SOLN 4 ML BTL INH ONE (08:42)
[2017-09-24] MEDS ORDERED: FENTANYL CITRATE INJ 50 MCG/1 ML 2 ML VIAL IV ONE (08:42)
[2017-09-24] MEDS ORDERED: LEVALBUTEROL 1.25MG/3ML NEB INH ONE (08:42)
[2017-09-24] MEDS ORDERED: OXYMETAZOLINE HCL 0.05% NA SPR 15 ML BTL ONE (08:42)
[2017-09-24] MEDS ORDERED: LIDOCAINE VISCOUS 2% 100ML TOP ONE (08:42)
--- NOTE | 2017-09-24 08:42 | [facility] Operative Report ---
Operative Report Operative Date Sep 24, 2017. Pre-Operative Diagnosis Chronic Asthma Post-Operative Diagnosis Chronic Asthma Procedure(s) Performed Bronchoscopy with Bronchial Alveolar Lavage Surgeon Dr. Najera Analysis Consultant Surgeon(s) None Estimated Blood Loss 0 Findings Chronic Mucopurulent Bronchitis Specimens Right and Left Bronchial Washings Complication(s) None Disposition I attest to the content of the Intraoperative Record and any orders documented therein. Any exceptions are noted below.
--- NOTE | 2017-09-24 08:43 | Post Sedation Assessment ---
Post Sedation Assessment General Date of Sedation Sep 24, 2017. Vital Signs: Vital Signs Past 12 Hours Date Time Temp Pulse Resp B/P (MAP) Pulse Ox O2 Delivery O2 Flow Rate FiO2 09/24/17 08:35 88 14 156/82 100 Mask 10 09/24/17 08:30 85 14 155/87 100 Mask 10 09/24/17 08:25 76 12 144/99 100 Mask 8 09/24/17 08:20 71 14 147/101 100 Mask 8 09/24/17 08:15 67 14 153/81 100 Mask 8 09/24/17 06:53 36.4 63 18 135/81 (99) 96 Room Air Post Procedure Recovery Score Activity: (2) Moves 4 extremities * Respiration: (2) Deep breath/cough Circulation: (2) +/-20% PreAnes Value Consciousness: (1) Arouseable (by name) Oxygen Saturation: (1) O2 needed for >90% Post Anesthesia Score: 8 Discharge Sedation Level of Care: Fast Track Phase II Post Sedation Plan On clinical assessment, the patient appears to have tolerated the sedation without complications. Patient is recovering as anticipated. Patient will continue to be monitored by nursing and may be discharged when sedation discharge criteria are met per below protocol. Upon Completions of procedure and additional 15 minutes continue every 5 minute vital signs and the P.A.R. score; then discharge to a Phase I or Fast Track to Phase II per the following guidelines: * Discharge Patient to appropriate Phase II area if PAR is 8 or greater or return to pre- procedure baseline. The post - procedure orders will be as directed. * If PAR score is less than 8 or not return to pre-procedure baseline then patient will follow Phase I monitoring till PAR is reached for Phase II. The Phase I may be done in procedure room or may call to secure a Phase I area. * If naloxone or flumazenil are used for reversal, hold in Phase I for an additional 60 -120 minutes before discharge to Phase II. Please call the Sedation Physician to re-evaluate and complete post-note for discharge to Phase II area. Do NOT discharge from procedure sedation or Phase 1 until post- sedation evaluation note is complete by procedure /sedation MD Sedation Discharge Instructions to be given to the patient at discharge to home.
--- NOTE | 2017-09-24 08:44 | Discharge Instructions ---
Discharge Instructions Date of Service Sep 24, 2017. Admission Reason for Admission: Shortness Of Breath, Asthma Discharge Discharge Diagnosis / Problem: Chronic Mucopurulent Bronchitis Discharge Goals Goal(s): Diagnostic testing Activity Recommendations Activity Limitations: resume your previous activity Lifting Limitations: none Exercise/Sports Limitations: none May Resume Sexual Activity: when tolerated Shower/Bathe: no limitations Driving or Machine Use: resume 1 day after discharge None . Current Hospital Diet Patient's current hospital diet: Discharge Diet Recommended Diet: Regular Diet Fluid Restriction: None Procedures Procedures Performed: Bronchoscopy with Bronchial Alveolar Lavage Pending Studies Studies pending at discharge: no Medical Emergencies . Who to Call and When: Medical Emergencies: If at any time you feel your situation is an emergency, please call 911 immediately. . Non-Emergent Contact Non-Emergency issues call your: Medical Front Desk Specialist Call Non-Emergent contact if: temperature is above 101 . . "Provider Documentation" section prepared by Emmett Najera. .
--- NOTE | 2017-09-24 09:59 | OPERATIVE REPORT ---
DATE OF OPERATION: 09/24/2017 PROCEDURE: Fiberoptic bronchoscopy with bronchoalveolar lavage. INDICATIONS: Persistent chest tightness and dyspnea. ANESTHESIA PREOPERATIVELY: None. ANESTHESIA DURING PROCEDURE: 100 mcg IV fentanyl, 5 mg IV Versed, 20 mL 2% Xylocaine spray above and below the cords, 4% viscous Xylocaine intranasally. DESCRIPTION OF PROCEDURE: Fiberoptic bronchoscope was inserted through right naris and passed low the true vocal cords. The cords appeared to approximate normally with phonation without evidence of lesions or paralysis. The area was anesthetized with 2% Xylocaine spray, and the scope was then introduced in the trachea and right and left tracheobronchial tree. Immediately visible was multiple mucus plugs adherent to the tracheal marquez that were lavaged until clear. The ryan was sharp. The right mainstem bronchus was explored initially, no endobronchial lesion seen. The right upper lobe, the apical posterior and anterior segments, bronchus intermedius, right middle lobe, medial lateral segments, and all basilar segments of right lower lobe were found to be free of endobronchial lesions. Small mucus plugs were lavaged from all lobar segments until looked clear. Mucous pitting was prominently displayed throughout the right tracheobronchial tree. The left tracheobronchial tree was explored and no endobronchial lesion seen. Left upper lobe, the apical posterior and anterior segments, lingual subdivision, and left lower lobe were free of endobronchial lesions down to subsegmental bronchi, with same degree of mucous plugging seen involving the left lower lobe with this time mild to moderate degree of global inflammatory mucosal change. After copiously lavaging each lobar segment and sending the aspirate for appropriate studies, no brushings or biopsies were deemed necessary. Fluoroscopy was not utilized. Procedure was terminated. Patient was given a nebulizer treatment with Xopenex 1.25 mg and transferred to the same day surgery hemodynamically stable, no signs of respiratory compromise. We will await microbiological and cytologic examination of the bronchial washings. I attest to the content of the Intraoperative Record and any orders documented therein. Any exception s are noted below.
[2017-09-28 14:28] LABS: HERPES SIMPLEX VIRUS CULT NOT ISOLATED (NOT ISOLATED)
== END 2017-09-24 11:10 | disposition home or self-care (01) ==
LOC: C.ACU 06:24
PROVIDERS: ATTEND Internal Medicine Pulmonary Disease
DX: R06.00 Dyspnea, unspecified (principal); R07.89 Other chest pain

== ENCOUNTER → 2017-09-30 | Outpatient (CLI) | payer OTHER ==
--- NOTE | 2017-09-30 12:57 | DIAGNOSTIC IMAGING REPORT ---
THORACIC SPINE 3 VIEWS ROUTINE HISTORY: Pain BACK PAIN COMPARISON: None. FINDINGS: There is no fracture. No subluxation. Disc spaces are preserved. IMPRESSION: No fracture or subluxation within the thoracic spine. The above report was generated using voice recognition software. It may contain grammatical, syntax or spelling errors. Electronically signed by: Chi Lei M.D. 09/30/2017 12:56 PM Dictated Date/Time: 09/30/2017 12:55 PM
--- NOTE | 2017-09-30 13:00 | DIAGNOSTIC IMAGING REPORT ---
RIBS BILATERAL WITH PA CHEST CLINICAL HISTORY: BACK PAIN pain COMPARISON STUDY: 07/15/2017 FINDINGS: Negative chest. Negative ribs. No acute bony abnormality. Lungs are clear. IMPRESSION: Negative study The above report was generated using voice recognition software. It may contain grammatical, syntax or spelling errors. Electronically signed by: Chi Lei M.D. 09/30/2017 12:59 PM Dictated Date/Time: 09/30/2017 12:57 PM
== END | disposition home or self-care (01) ==
LOC: C.RAD1850 12:35
PROVIDERS: ATTEND Physician Assistant
DX: M94.0 Chondrocostal junction syndrome [Tietze] (principal)

== ENCOUNTER 2018-04-22 15:21 | Observation (INO) ==
[2018-04-22 16:29] LABS: Basophils # (auto) 0.05 K/uL (0-0.2); Basophils % (auto) 0.8 %; Eosinophils # (auto) 0.12 K/uL (0-0.5); Eosinophils % (auto) 1.8 %; Hematocrit (blood only) 39.4 % (37-47); Immature Granulocytes # (auto) 0.02 K/uL (0.00-0.02); Immature Granulocytes % (auto) 0.3 %; Lymphocytes # (auto) 2.13 K/uL (1.2-3.4); Lymphocytes % (auto) 32.5 %; Mean Corpuscular Hgb Conc 35.5 g/dL (32-36); Mean Corpuscular Volume 91.4 fL (80-100); Mean Platelet Volume 8.7 fL (7.4-10.4); Monocytes # (auto) 0.84 K/uL (0.11-0.59); Monocytes % (auto) 12.8 %; Neutrophils # (auto) 3.39 K/uL (1.4-6.5); Neutrophils % (auto) 51.8 %; Platelet Count 328 K/uL (130-400); RDW Coefficient of Variation 12.7 % (11.5-14.5); RDW Standard Deviation 42.7 fL (36.4-46.3); Red Blood Count 4.31 M/uL (4.2-5.4); White Blood Count 6.55 K/uL (4.8-10.8)
--- NOTE | 2018-04-22 16:43 | XRay Report ---
XR chest 1V portable CLINICAL HISTORY: CHEST PAIN pain COMPARISON STUDY: 09/30/2017 FINDINGS: The bones soft tissues and hemidiaphragms are normal. The cardiomediastinal silhouette is n ormal. The lungs are clear. The pulmonary vasculature is normal. IMPRESSION: Negative chest. The above report was generated using voice recognition software. It may contain grammatical, syntax or spelling errors. Electronically signed by: Chi Lei M.D. 04/22/2018 4:42 PM
[2018-04-22 16:47] LABS: Alanine Aminotransferase 23 U/L (12-78); Albumin Level 3.2 gm/dl (3.4-5.0); Aspartate Aminotransferase 21 U/L (15-37); BUN Creatinine Ratio 14.8 (10-20); Blood Urea Nitrogen 9 mg/dl (7-18); Calcium 8.2 mg/dl (8.5-10.1); Carbon Dioxide 30 mmol/L (21-32); Chloride 104 mmol/L (98-107); Creatinine Clr Calc Pharmacy 113.1 ml/min; Est GFR (African American) 119.8; Est GFR (Non-African American) 103.3; Glucose 88 mg/dl (70-99); Potassium 3.2 mmol/L (3.5-5.1); Sodium 139 mmol/L (136-145)
[2018-04-22 16:49] LABS: D Dimer 420 ug/L FEU (0-500)
[2018-04-22] MEDS ORDERED: KETOROLAC TROMETHAMINE 15 MG/ML VIAL IV STA (16:51)
[2018-04-22] MEDS ORDERED: ALUMINUM/MAGNESIUM SUSP 30 ML UDC PO STA (16:51)
[2018-04-22] MEDS ORDERED: LORazepam 0.5 MG/1 ML VIAL IV STA (16:51)
[2018-04-22 16:52] LABS: Albumin Globulin Ratio 0.9 (0.9-2); Alkaline Phosphatase 54 U/L (45-117); Bilirubin,Total 0.3 mg/dl (0.2-1); Globulin 3.5 gm/dl (2.5-4.0); Total Protein 6.7 gm/dl (6.4-8.2); Troponin I < 0.015 ng/ml (0-0.045)
[2018-04-22] MEDS ORDERED: FAMOTIDINE 20MG/5ML IV PUSH IV STA (16:52)
[2018-04-22] MEDS ORDERED: POTASSIUM CHLORIDE 20 MEQ TABCR PO STA (18:39)
--- NOTE | 2018-04-22 18:47 | History & Physical Report ---
Date of Service April 22, 2018 Assessment & Plan (1) Chest pain: This is a 52-year-old white female with significant past medical history of HTN, HLD, GERD, rhinitis who presents to [facility] ED secondary to chest pain and DAILEY unfortunately for 1 year but worsened in past 2 days. She has had hospital visits along with multiple work ups for chest discomfort and palpitations. Recently underwent dobutamine stress echo and holter monitor, otherwise normal except freq PVC. Has Cardiac Cath 06/2017 Cath revealed 10% ostial LAD plaque, otherwise normal coronary arteries. Work up in ED essentially unremarkable, except for hypokalemia. She notes nitro doesn't alleviate her symptoms. Given Toradol, famotidine and lorazepam without relief. -observe overnight on telemetry -continue home medications including metoprolol, monitor for freq pvcs -rule out ACS, repeat troponin and check ECG -check ESR, CRP, CK, TSH (2) DAILEY (dyspnea on exertion): -as above (3) Hypokalemia: -replete with 40meq x 1 now and continue with daily repletion (4) Hypertension: -stable continue losartan and lasix (5) Hormone replacement therapy (HRT): -continue estrace, has been on replacement for 22 years (6) DVT prophylaxis: -SCDS/TEDS -patient low risk but on HRT Disposition: D/C to home Follow up: PCP Dr. Rebollar upon discharge as well as Scheduled appt with Dr. Guo cardiology Patient was seen in collaboration with Dr. Grant, Please see addendum History of Present Illness Chief Complaint: Ongoing Chest Pain x 1 year. Primary Care Provider: Zoran Rebollar MD This is a 52-year-old white female with significant past medical history of HTN, HLD, GERD, rhinitis who presents to [facility] ED secondary to chest pain and DAILEY unfortunately for 1 year. is at bedside. She presents today because of the pain worsening for the past 2 days. CP is constant, alleviated by nothing, worsened with exertion, non radiating, described as "pressure and heaviness." Occassionally when chest pain gets worse she does take nitro and it brings the pain back to its, "normal level." Patient was hospitalized for similar symptoms back in July and underwent cardiac work up including cardiac cath. Cath revealed 10% ostial LAD plaque, otherwise normal coronary arteries. Due to continued chest discomfort she was referred to pulmonology Dr. Najera. She further diagnostic testing including bronchoscopy. Patient states she did have, "mucus plugging which was removed." Further diagnosed with a hypersensitivity pneumonitis. Placed on high dose prednisone therapy. She finished pred therapy 1 week ago at 5mg but according to pt did not tolerate well and was tapered down quicker then usual due to side effects. Given no relief from pulmonary intervention she was referred back to cardiology in which 02/2018 underwent additional dobutamine stress echo with chest pain present. Stress test was negative for inducible ischemia. Holter monitor was obtained which revealed labile HR and BP and freq PVC. She now presents back today for further work up of chest pain. Pain currently present and described as above. Associated DAILEY present. "I can't even shower without getting short of breath." Affecting QOL. She denies recent illness, f/c/s, sob at rest, n/v/d, abdominal pain, urinary or bowel complaints. Appetite is normal. Complains of increased swelling to lower extremity and back, "has been present ever since prednisone therapy. Pertinent family history includes Maternal GMA who passed of IA at age 54, Son who passed at 29 of HOCM. Allergies Allergy/AdvReac Type Severity Reaction Status Date / Time codeine Allergy Intermediate hives Verified 04/22/18 18:42 Penicillins Allergy Intermediate hives Verified 04/22/18 18:42 bupropion AdvReac Mild "sweats" Verified 04/22/18 18:42 oxycodone AdvReac Mild "sweats" Verified 04/22/18 18:42 Home Medications Home Medications Medication Instructions Recorded Confirmed Type estradiol 2 mg PO DAILY 04/22/18 04/22/18 History furosemide 40 mg PO QAM 04/22/18 04/22/18 History losartan 25 mg PO QAM 04/22/18 04/22/18 History lysine 500 mg PO DAILY PRN 04/22/18 04/22/18 History metoprolol tartrate 12.5 mg PO BID 04/22/18 04/22/18 History mometasone [Nasonex] 2 spray INTRANASAL DAILY PRN 04/22/18 04/22/18 History nitroglycerin [Nitrostat] 0.4 mg SUBLINGUAL DIRECTED PRN 04/22/18 04/22/18 History potassium chloride 20 meq PO QAM 04/22/18 04/22/18 History Past Med/Surg History Medical History Chronic chest pain Hormone replacement therapy (HRT) Hypertension (Chronic) Skin cancer of face (Resolved) Surgical History S/P cholecystectomy (Resolved) S/P lumbar spinal fusion (Resolved) S/P hysterectomy (Resolved) Social History Preferred Language: Tajik Communication Ability: Effective marital status: Current Living Situation: Spouse current occupational status: employed Feels Safe at Home: Yes Smoking Status: Never smoker Hx Alcohol Use: No Hx Substance Use: No Review of Systems All systems reviewed & are unremarkable except as noted in HPI & below Physical Exam Vital Signs (Past 24 Hours): Last Vital Signs Temp 36.6 C 04/22/18 15:26 Pulse 84 04/22/18 18:32 Resp 18 04/22/18 18:32 BP 96/67 L 04/22/18 18:32 Pulse Ox 96 04/22/18 18:32 Constitutional: WD/WN, vitals as above well developed, well nourished and + obese Eyes: PERRL, conjunctivae normal, anicteric sclerae ENMT: external ear and nose normal, oropharynx normal Neck: trachea midline, no thyromegaly Respiratory: normal respiratory effort, lungs clear to auscultation Cardiovascular: Rate/Rhythm: regular rate and regular rhythm Extremities: + edema (bilateral non pitting edema) Gastrointestinal (Abdomen): normal bowel sounds, soft, nontender, no hepatosplenomegaly Musculoskeletal: no cyanosis or clubbing, extremities motor strength 5/5 Skin: no rashes, warm and dry Neurologic: PERRL, EOMI, accommodation nl, no face palsy, no dysarthria Psychiatric: A+Ox3, euthymic affect Results & Data Laboratory Results Short CBC 04/22/18 Range/Units 16:10 WBC 6.55 (4.8-10.8) K/uL Hgb 14.0 (12.0-16.0) g/dL Hct 39.4 (37-47) % Plt Count 328 (130-400) K/uL BMP 04/22/18 16:10 Sodium 139 Potassium 3.2 L Chloride 104 Carbon Dioxide 30 BUN 9 Creatinine 0.60 Glucose 88 Calcium 8.2 L Cardiac Enzymes 03/08/19 Range/Units 16:10 Troponin I < 0.015 (0-0.045) ng/ml Liver Function 04/22/18 Range/Units 16:10 Total Bilirubin 0.3 (0.2-1) mg/dl AST 21 (15-37) U/L ALT 23 (12-78) U/L Alkaline Phosphatase 54 (45-117) U/L Albumin 3.2 L (3.4-5.0) gm/dl Diagnostic Findings CXR: IMPRESSION: Negative chest. Medications Administered Discontinued Medications Al Hydrox/Mg Hydrox/Simethicone (Maalox) 15 ml PO NOW STA Stop: 04/22/18 16:52 Last Admin: 04/22/18 17:15 Dose: Not Given Documented by: [id number] Famotidine (Pepcid 20mg Iv Push) 20 mg IV ONE STA Stop: 04/22/18 16:53 Last Admin: 04/22/18 17:15 Dose: Not Given Documented by: [id number] Lorazepam (Ativan) 0.5 mg in 1 mls @ 1 mls/min IV NOW STA Stop: 04/22/18 16:52 Last Admin: 04/22/18 17:14 Dose: 1 mls/min Documented by: [id number] Ketorolac Tromethamine (Toradol) 15 mg IV NOW STA Stop: 04/22/18 16:52 Last Admin: 04/22/18 17:14 Dose: 15 mg Documented by: [id number] ECG Rate (beats per minute): 77 Rhythm: normal sinus Code Status & VTE Plan Code Status Full Code VTE Prophylaxis Plan VTE Prophylaxis will be ordered: Yes Supervising Physician Co-Signing Physician Notes I have seen and examined the patient with physician resident programs assistant and agree with the assessment and plan as above and would like add that Patient has in the past had multiple workups for chest discomfort and palpitations. Have reviewed in her history including in February 2018 of 48 hour Holter monitor that there are Premature Ventricular Contractions but otherwise normal sinus rhythm. It is very possible that premature ventricular contractions may correlate to patients tachycardia and chest discomfort symptoms Will monitor on telemetry, will continue home dose metoprolol for now but will consider adding additional heart rate control medications if patient is found to be tachycardic. Currently the heart rate is under 100 beats per minute while in the emergency room. Use of beta blockers should be used with caution as patients February 2018 Holter monitor also showed episodes of bradycardia to as low as 44 beats per minute. However we will rule out acute coronary syndrome even if this this unlikely given history of nonischemic dobutamine stress echocardiogram in March 11, 2018 with resting echocardiogram. A resting echocardiogram also to be used to rule out pericarditis or pericardial effusion Will send ESR, CRP Will send TSH, and creatinine kinase Mild hypokalemia with serum potassium of 3.2. Will replete with supplements On exam General: no acute distress Eyes: EOMI Chest: reports tenderness on palpation of chest area but different type of tenderness than recent symptoms Lungs: clear to auscultation bilaterally, no wheezing, breathing on room air Abdomen: soft, nontender, positive bowel sounds Extremities: moves all extremities Neurology: no focal neurological symptoms Agree with other medical issues and plans as documented by physician resident programs assistant (1) Chest pain Chest pain type: unspecified Qualified Code(s): R07.9 - Chest pain, unspecified (2) Hypertension Hypertension type: essential hypertension Qualified Code(s): I10 - Essential (primary) hypertension
[2018-04-22] MEDS ORDERED: ALUMINUM/MAGNESIUM SUSP 30 ML UDC PO PRN (19:56)
[2018-04-22] MEDS ORDERED: ACETAMINOPHEN 325 MG TAB PO PRN (19:56)
[2018-04-22] MEDS ORDERED: ONDANSETRON INJ 2 MG/ML 2 ML VIAL IV PRN (19:56)
[2018-04-22] MEDS ORDERED: FLUTICASONE PROPIONATE NA SPR 16 GM BTL NAE PRN (19:56)
[2018-04-22] MEDS ORDERED: POLYETHYLENE (MIRALAX) 17 GM PACK PO PRN (19:56)
[2018-04-22] MEDS ORDERED: MAGNESIUM HYDROXIDE SUSP 30 ML UDC PO PRN (19:56)
[2018-04-22] MEDS ORDERED: NITROGLYCERIN SL 0.4 MG/TAB TAB SL PRN (19:56)
[2018-04-22] MEDS: METOPROLOL TARTRATE 25 MG TAB PO SCH (20:59)
[2018-04-22] MEDS: MoRPHine SULFATE 2 MG/ML CARP IV PRN (21:22)
[2018-04-22 22:38] LABS: C Reactive Protein 0.46 mg/dl (0-0.29); Creatine Kinase 24 U/L (26-192); Troponin I < 0.015 ng/ml (0-0.045)
[2018-04-23 06:55] LABS: Hematocrit (blood only) 37.1 % (37-47); Mean Corpuscular Volume 92.1 fL (80-100); Mean Platelet Volume 8.7 fL (7.4-10.4); Platelet Count 301 K/uL (130-400); RDW Coefficient of Variation 12.8 % (11.5-14.5); Red Blood Count 4.03 M/uL (4.2-5.4); White Blood Count 4.71 K/uL (4.8-10.8)
[2018-04-23 07:17] LABS: BUN Creatinine Ratio 20.8 (10-20); Blood Urea Nitrogen 11 mg/dl (7-18); Carbon Dioxide 27 mmol/L (21-32); Chloride 107 mmol/L (98-107); Creatinine Clr Calc Pharmacy 132.5 ml/min; Est GFR (African American) 126.3; Glucose 86 mg/dl (70-99); Potassium 3.6 mmol/L (3.5-5.1); Sodium 139 mmol/L (136-145)
[2018-04-23 07:23] LABS: Troponin I < 0.015 ng/ml (0-0.045)
[2018-04-23] MEDS: MoRPHine SULFATE 2 MG/ML CARP IV PRN (07:26)
[2018-04-23] MEDS: METOPROLOL TARTRATE 25 MG TAB PO SCH (07:26)
[2018-04-23] MEDS ORDERED: KETOROLAC TROMETHAMINE 15 MG/ML VIAL IV PRN (08:38)
[2018-04-23] MEDS ORDERED: CARVEDILOL 3.125 MG TAB PO ONE (08:41)
[2018-04-23] MEDS ORDERED: ESTRADIOL 1 MG TAB PO SCH (09:00)
[2018-04-23] MEDS ORDERED: LOSARTAN POTASSIUM 25 MG TAB PO SCH (09:00)
[2018-04-23] MEDS ORDERED: FUROSEMIDE 40 MG TAB PO SCH (09:00)
[2018-04-23] MEDS ORDERED: POTASSIUM CHLORIDE 20 MEQ TABCR PO SCH (09:00)
[2018-04-23] MEDS ORDERED: IBUPROFEN 600 MG TAB PO PRN (11:25)
--- NOTE | 2018-04-23 12:17 | Hospitalist Progress Note ---
Date of Service April 23, 2018 Assessment & Plan (1) Chest pain: This is a 52-year-old white female with significant past medical history of HTN, HLD, GERD, rhinitis who presents to [facility] ED secondary to chest pain and DAILEY unfortunately for 1 year but worsened in past 2 days. Patient has in the past had multiple workups for chest discomfort and palpitations. cardiac Cath 06/2017 Cath revealed 10% ostial LAD plaque, otherwise normal coronary arteries. Have reviewed in her history including in February 2018 of 48 hour Holter monitor that there are Premature Ventricular Contractions but otherwise normal sinus rhythm. Recently underwent dobutamine stress echo and ho lter monitor, otherwise normal except freq PVC. Patient evaluated in hospital no acute telemetry events other than some premature ventricular contractions - and heart rate has been between 70 beats per minute to 100 beats per minute troponins are negative there is no evidence for ischemic heart disease on echocardiogram and no evidence for pericarditis or pleural effusion so the chest discomfort is a non cardiac chest pain normal TSH, normal creatinine kinase, mildly elevated CRP Patient may take increased dose of metoprolol from BID to TID and perhaps this may slow down the heart and prevent sensations from premature ventricular contractions Patient may take amitriptyline 10 mg once nightly in case this is neuropathic pain Patient also has prescriptions for ibuprofen 600 mg every 8 hours as needed for pain for 5 day supply Patient also have prescription for acetaminophen 325 mg every 6 hours as needed for pain. Patient should avoid taking more than 3000 mg of acetaminophen in a d ay to prevent liver problems All prescriptions have been sent electronically to patient's pharmacy Patient should avoid beverages with caffeine Patient has follow up appointments 04/28/2018 11:00 AM Provider Zoran Rebollar MD Department Family Practice [facility] 05/27/2018 12:30 PM Provider Crispin Guo MD Department Cardiology, [facility] (2) DAILEY (dyspnea on exertion): saturating well on room air throughout hospital stay does not qualify form home oxygen therapy at this time Chest X ray is clear - no pneumonia (3) Hypokalemia: admission potassium 3.2 and after potassium supplements the hypokalemia has resolved hypokalemia likely due to potassium loss from diuretic of Lasix (Hypokalemia corrected in the hospital) (4) Hypertension: -stable continue losartan and lasix (5) Hormone replacement therapy (HRT): -uses estrace as outpatient (6) DVT prophylaxis: SCDS/TEDS Discharge Diagnosis non cardiac chest pain, premature ventricular contractions, Hypokalemia with potassium loss from diuretic of Lasix (Hypokalemia corrected in the hospital) Discharge Instructions Subjective Overnight patient reported to nurse of chest discomfort and received morphine But testing and telemetry monitoring does not reveal any evidence for ischemic heart disease. Patient did complain of feeling subjective shortness of breath on exertion but patient continues to saturate well on room air and no acute pulmonary processes identified on this admission. The findings were discussed thoroughly with the patient and including discharge plans no abdominal pain, no vomiting, no lightheadedness normal vitals throughout out hospital stay Physical Exam Vital Signs (Past 24 Hours): Last Vital Signs Temp 36.5 C 04/23/18 11:44 Pulse 84 04/23/18 11:44 Resp 18 04/23/18 11:44 BP 130/77 04/23/18 11:44 Pulse Ox 95 04/23/18 11:44 Constitutional: WD/WN, vitals as above Eyes: PERRL, conjunctivae normal, anicteric sclerae Neck: trachea midline, no thyromegaly Respiratory: normal respiratory effort, lungs clear to auscultation Cardiovascular: RRR, no murmur, no edema Gastrointestinal (Abdomen): normal bowel sounds, soft, nontender, no hepatosplenomegaly Musculoskeletal: no cyanosis or clubbing, extremities motor strength 5/5 Head/Neck/Chest: normocephalic and head atraumatic Neurologic: PERRL, EOMI, accommodation nl, no face palsy, no dysarthria CN's II-XI intact bilaterally Psychiatric: A+Ox3, euthymic affect (1) Chest pain Chest pain type: unspecified Qualified Code(s): R07.9 - Chest pain, unspecified (2) Hypertension Hypertension type: essential hypertension Qualified Code(s): I10 - Essential (primary) hypertension
--- NOTE | 2018-04-23 12:26 | Discharge Summary ---
Date of Service April 23, 2018 Admission HPI Per Admitting Provider This is a 52-year-old white female with significant past medical history of HTN, HLD, GERD, rhinitis who presents to [facility] ED secondary to chest pain and DAILEY unfortunately for 1 year. is at bedside. She presents today because of the pain worsening for the past 2 days. CP is constant, alleviated by nothing, worsened with exertion, non radiating, described as "pressure and heaviness." Occassionally when chest pain gets worse she does take nitro and it brings the pain back to its, "normal level." Patient was hospitalized for similar symptoms back in July and underwent cardiac work up including cardiac cath. Cath revealed 10% ostial LAD plaque, otherwise normal coronary arteries. Due to continued chest discomfort she was referred to pulmonology Dr. Najera. She further diagnostic testing including bronchoscopy. Patient states she did have, "mucus plugging which was removed." Further diagnosed with a hypersensitivity pneumonitis. Placed on high dose prednisone therapy. She finished pred therapy 1 week ago at 5mg but according to pt did not tolerate well and was tapered down quicker then usual due to side effects. Given no relief from pulmonary intervention she was referred back to cardiology in which 02/2018 underwent additional dobutamine stress echo with chest pain present. Stress test was negative for inducible ischemia. Holter monitor was obtained which revealed labile HR and BP and freq PVC. She now presents back today for further work up of chest pain. Pain currently present and described as above. Associated DAILEY present. "I can't even shower without getting short of breath." Affecting QOL. She denies recent illness, f/c/s, sob at rest, n/v/d, abdominal pain, urinary or bowel complaints. Appetite is normal. Complains of increased swelling to lower extremity and back, "has been present ever since prednisone therapy. Pertinent family history includes Maternal GMA who passed of [place] at age 54, Son who passed at 29 of HOCM. Admission Exam Per Admitting Provider Constitutional: WD/WN, vitals as above well developed, well nourished and + obese Eyes: PERRL, conjunctivae normal, anicteric sclerae ENMT: external ear and nose normal, oropharynx normal Neck: trachea midline, no thyromegaly Respiratory: normal respiratory effort, lungs clear to auscultation Cardiovascular: Rate/Rhythm: regular rate and regular rhythm Extremities: + edema (bilateral non pitting edema) Gastrointestinal (Abdomen): normal bowel sounds, soft, nontender, no hepatosplenomegaly Musculoskeletal: no cyanosis or clubbing, extremities motor strength 5/5 Skin: no rashes, warm and dry Neurologic: PERRL, EOMI, accommodation nl, no face palsy, no dysarthria Psychiatric: A+Ox3, euthymic affect Principal Diagnosis non cardiac chest pain, premature ventricular contractions, Hypokalemia with potassium loss from diuretic of Lasix (Hypokalemia corrected in the hospital) Discharge Exam Constitutional WD/WN, vitals as above Eyes PERRL, conjunctivae normal, anicteric sclerae Neck trachea midline, no thyromegaly Respiratory normal respiratory effort, lungs clear to auscultation Cardiovascular RRR, no murmur, no edema Gastrointestinal (Abdomen) normal bowel sounds, soft, nontender, no hepatosplenomegaly Musculoskeletal no cyanosis or clubbing, extremities motor strength 5/5 Head/Neck/Chest: normocephalic and head atraumatic Neurologic PERRL, EOMI, accommodation nl, no face palsy, no dysarthria CN's II-XI intact bilaterally Psychiatric A+Ox3, euthymic affect Discharge Data Allergies Allergy/AdvReac Type Severity Reaction Status Date / Time codeine Allergy Intermediate hives Verified 04/22/18 18:42 Penicillins Allergy Intermediate hives Verified 04/22/18 18:42 bupropion AdvReac Mild "sweats" Verified 04/22/18 18:42 oxycodone AdvReac Mild "sweats" Verified 04/22/18 18:42 Consultations 04/22/18 17:50 ED Decision to Admit Stat Hospital Course (1) Chest pain: This is a 52-year-old white female with significant past medical history of HTN, HLD, GERD, rhinitis who presents to [facility] ED secondary to chest pain and DAILEY unfortunately for 1 year but worsened in past 2 days. Patient has in the past had multiple workups for chest discomfort and palpitations. cardiac Cath 06/2017 Cath revealed 10% ostial LAD plaque, otherwise normal coronary arteries. Have reviewed in her history including in February 2018 of 48 hour Holter monitor that there are Premature Ventricular Contractions but otherwise normal sinus rhythm. Recently underwent dobutamine stress echo and holter monitor, otherwise normal except freq PVC. Patient evaluated in hospital no acute telemetry events other than some premature ventricular contractions - and heart rate has been between 70 beats per minute to 100 beats per minute troponins are negative there is no evidence for ischemic heart disease on echocardiogram and no evidence for pericarditis or pleural effusion so the chest discomfort is a non cardiac chest pain normal TSH, normal creatinine kinase, mildly elevated CRP Patient may take increased dose of metoprolol from BID to TID and perhaps this may slow down the heart and prevent sensations from premature ventricular contractions Patient may take amitriptyline 10 mg once nightly in case this is neuropathic pain Patient also has prescriptions for ibuprofen 600 mg every 8 hours as needed for pain for 5 day supply Patient also have prescription for acetaminophen 325 mg every 6 hours as needed for pain. Patient should avoid taking more than 3000 mg of acetaminophen in a day to prevent liver problems All prescriptions have been sent electronically to patient's pharmacy Patient should avoid beverages with caffeine Patient has follow up appointments 04/28/2018 11:00 AM Provider Zoran Rebollar MD Department Family Practice [facility] 05/27/2018 12:30 PM Provider Crispin Guo MD Department Cardiology, [facility] (2) DAILEY (dyspnea on exertion): saturating well on room air throughout hospital stay does not qualify form home oxygen therapy at this time Chest X ray is clear - no pneumonia (3) Hypokalemia: admission potassium 3.2 and after potassium supplements the hypokalemia has resolved hypokalemia likely due to potassium loss from diuretic of Lasix (Hypokalemia corrected in the hospital) (4) Hypertension: -stable continue losartan and lasix (5) Hormone replacement therapy (HRT): -uses estrace as outpatient (6) DVT prophylaxis: SCDS/TEDS Discharge Diagnosis non cardiac chest pain, premature ventricular contractions, Hypokalemia with potassium loss from diuretic of Lasix (Hypokalemia corrected in the hospital) Discharge Instructions Total Time Total Time Spent Total Time Spent (In Minutes): 40 minutes Total Time Includes: Examination of the Patient, Discharge Planning and Medication Reconciliation Discharge Plan Discharge Items Patient Disposition: Home - Self-Care Reason For Visit: CHEST PAIN Discharge Diagnosis: non cardiac chest pain, premature ventricular contractions, Hypokalemia with potassium loss from diuretic of Lasix (Hypokalemia corrected in the hospital) Condition: Good Discharge Goals: Decrease discomfort Activity: Resume your previous activity Non-emergency contact: Primary Care Provider and Client Executive Call non-emergency contact if: you have any medication questions Follow-up/Referrals: Zoran Rebollar MD [Primary Care Provider] - Diet: Regular Addtl Provider Instructions: Patient evaluated in hospital no acute telemetry events other than some premature ventricular contractions - and heart rate has been between 70 beats per minute to 100 beats per minute troponins are negative there is no evidence for ischemic heart disease on echocardiogram and no evidence for pericarditis or pleural effusion so the chest discomfort is a non cardiac chest pain normal TSH, normal creatinine kinase, mildly elevated CRP Patient may take increased dose of metoprolol from BID to TID and perhaps this may slow down the heart and prevent sensations from premature ventricular contractions Patient may take amitriptyline 10 mg once nightly in case this is neuropathic pain Patient also has prescriptions for ibuprofen 600 mg every 8 hours as needed for pain for 5 day supply Patient also have prescription for acetaminophen 325 mg every 6 hours as needed for pain. Patient should avoid taking more than 3000 mg of acetaminophen in a day to prevent liver problems All prescriptions have been sent electronically to patient's pharmacy Patient should avoid beverages with caffeine Patient has follow up appointments 04/28/2018 11:00 AM Provider Zoran Rebollar MD Department Family Practice [facility] 05/27/2018 12:30 PM Provider Crispin Guo MD Department Cardiology, [facility] Prescriptions: New amitriptyline 10 mg Tablet 10 mg PO HS 30 Days Qty: 30 RF: 0 metoprolol tartrate 25 mg Tablet 12.5 mg PO TID 30 Days Qty: 45 RF: 0 ibuprofen 600 mg Tablet 600 mg PO Q8H PRN (Reason: pain) 5 Days Qty: 15 RF: 0 acetaminophen 325 mg tablet 325 mg PO Q6H PRN (Reason: pain) 5 Days Qty: 20 RF: 0 Continued furosemide 40 mg tablet 40 mg PO QAM RF: 0 potassium chloride 20 mEq tablet,ER particles/crystals 20 meq PO QAM RF: 0 losartan 25 mg tablet 25 mg PO QAM RF: 0 nitroglycerin [Nitrostat] 0.4 mg Tablet, Sublingual 0.4 mg Sublingual DIRECTED PRN (Reason: Chest Pain) RF: 0 mometasone [Nasonex] 50 mcg/actuation [place],Non-Aerosol 2 spray INTRANASAL DAILY PRN (Reason: Allergy Symptoms) RF: 0 estradiol 2 mg Tablet 2 mg PO DAILY RF: 0 lysine 500 mg Tablet 500 mg PO DAILY PRN (Reason: Mouth Ulcer(s)) RF: 0 Discontinued metoprolol tartrate 25 mg tablet 12.5 mg PO BID RF: 0 Stand-Alone Forms: [facility]charge Orders: Discharge Order (Routine); Ordered 04/23/18 Ordered By: Jb Grant Admission Data Admit Date/Time: 04/22/18 18:35 Attending Provider: Jb Grant Admit Provider: Jb Grant Primary Care Provider: Zoran Rebollar Other Providers: Hugo Palmer ; Jb Grant Service: Telemetry Medical
[2018-04-23] MEDS ORDERED: METOPROLOL TARTRATE 25 MG TAB PO SCH (14:00)
[2018-04-23] MEDS ORDERED: AMITRIPTYLINE HCL 10 MG TAB PO SCH (21:00)
[2018-04-23] MEDS ORDERED: CARVEDILOL 3.125 MG TAB PO SCH (21:00)
--- NOTE | 2018-04-25 05:57 | Emergency Department Note ---
Entered by Sabas Melendrez acting as a scribe for History of Present Illness General Chief complaint: Cardiac Assessment Stated complaint: CHEST PAIN FOR 2 DAYS, SOB, ELEVATED HEART RATE Time Seen by Provider: 04/22/18 15:30 Source: patient Limitations: no limitations History of Present Illness Provider complaint: Tachycardia Onset (ago): year(s) (1) Location: chest Pain Consistency: + other (worsening) Maximum Pain Intensity: 7 Quality: + other (tachycardia) Associated symptoms: + chest pain ("heaviness" ) and + shortness of breath Treatments prior to arrival: none The patient is a 52 year old female who presents to the Emergency Room with complaints of worsening tachycardia. The patient states that she has been experiencing issues with tachycardia for the past year. She notes that she was diagnosed with influenza and strep throat 1 year ago and has "been crappy since then." Since this episode she has noticed unusual shortness of breath and chest pain with minimal exertion. The patient notes that she will become short of breath with just getting up to walk to the restroom. The patient wears a "FitBit" and states that her heart rate would spike into the 110s-115s with minimal exertion as well. The patient has been following with a chemical etching processor for the past 6 months and has had a cardiac catheterization and stress echocardiogram. She is scheduled to see a pecan picker next month. The patient notes that she was at rest yesterday and her heart rate randomly spiked into the 100s and has not gone down. These symptoms usually resolve after a few minutes, but this episode has been constant for almost 24 hours. She did take two Nitro yesterday, which did not improve her symptoms. She denies any alcohol, caffeine use, or history of thyroid disorders. Home Medications Home Medications Medication Instructions Recorded Confirmed Type estradiol 2 mg PO DAILY 04/22/18 04/22/18 History furosemide 40 mg PO QAM 04/22/18 04/22/18 History losartan 25 mg PO QAM 04/22/18 04/22/18 History lysine 500 mg PO DAILY PRN 04/22/18 04/22/18 History mometasone [Nasonex] 2 spray INTRANASAL DAILY PRN 04/22/18 04/22/18 History nitroglycerin [Nitrostat] 0.4 mg SUBLINGUAL DIRECTED PRN 04/22/18 04/22/18 History potassium chloride 20 meq PO QAM 04/22/18 04/22/18 History acetaminophen 325 mg PO Q6H PRN 5 Days #20 tab 04/23/18 Rx amitriptyline 10 mg PO HS 30 Days #30 tab 04/23/18 Rx ibuprofen 600 mg PO Q8H PRN 5 Days #15 tab 04/23/18 Rx metoprolol tartrate 12.5 mg PO TID 30 Days #45 tab 04/23/18 Rx Allergies Allergy/AdvReac Type Severity Reaction Status Date / Time codeine Allergy Intermediate hives Verified 04/22/18 18:42 Penicillins Allergy Intermediate hives Verified 04/22/18 18:42 bupropion AdvReac Mild "sweats" Verified 04/22/18 18:42 oxycodone AdvReac Mild "sweats" Verified 04/22/18 18:42 Past Med/Surg History Medical History Chronic chest pain Hormone replacement therapy (HRT) Hypertension (Chronic) Skin cancer of face (Resolved) Surgical History S/P cholecystectomy (Resolved) S/P lumbar spinal fusion (Resolved) S/P hysterectomy (Resolved) Social History Preferred Language: Fijian Beliefs That Will Affect Care: None marital status: Current Living Situation: Spouse current occupational status: employed Other Information That Helps Us Care for You: No Feels Safe at Home: Yes Safety Concerns: Feels Safe At This Time Smoking Status: Never smoker Hx Alcohol Use: No Hx Substance Use: No Review of Systems See HPI for pertinent positives & negatives. and A total of 10 systems reviewed and were otherwise negative Physical Exam Vital Signs Vital Signs - 24 hr 04/22/18 15:26 04/22/18 15:35 04/22/18 16:01 Temperature 97.9 F Temperature Source Oral Sepsis Recent Fever Within 48 Hours No Sepsis Action Taken by Nursing No Action Required Pulse Rate 86 85 87 Pulse Rate from SpO2 Sensor 86 87 Pulse Rhythm Regular Pulse Strength Normal Respiratory Rate 24 21 20 Respiratory Effort / Characteristics Short of Breath Respiratory Depth Normal Respiratory Pattern Regular Blood Pressure 150/85 H 160/86 H 177/84 H Blood Pressure Mean 106 110 115 Blood Pressure Position Sitting Pulse Oximetry 96 96 97 Oxygen Delivery Method Room Air 04/22/18 16:15 04/22/18 16:30 04/22/18 17:00 Temperature Temperature Source Sepsis Recent Fever Within 48 Hours Sepsis Action Taken by Nursing Pulse Rate 87 89 Pulse Rate from SpO2 Sensor 87 90 Pulse Rhythm Pulse Strength Respiratory Rate 18 20 Respiratory Effort / Characteristics Respiratory Depth Respiratory Pattern Blood Pressure 142/93 H Blood Pressure Mean 109 Blood Pressure Position Pulse Oximetry 98 97 95 Oxygen Delivery Method Room Air 04/22/18 17:01 04/22/18 17:07 04/22/18 17:30 Temperature Temperature Source Sepsis Recent Fever Within 48 Hours Sepsis Action Taken by Nursing Pulse Rate 90 90 Pulse Rate from SpO2 Sensor 90 89 Pulse Rhythm Pulse Strength Respiratory Rate 15 21 Respiratory Effort / Characteristics Respiratory Depth Respiratory Pattern Blood Pressure 142/88 H 135/87 Blood Pressure Mean 106 103 Blood Pressure Position Pulse Oximetry 96 95 Oxygen Delivery Method Room Air GENERAL: alert, well appearing, well nourished, no distress, non-toxic EYE EXAM: normal conjunctiva, PERRL and EOM's grossly intact OROPHARYNX: no exudate, no erythema, lips, buccal mucosa, and tongue normal and mucous membranes are moist NECK: supple, no nuchal rigidity, no adenopathy, non-tender LUNGS: Clear to auscultation. Normal chest wall mechanics, no w/r/r HEART: no murmurs, S1 normal and S2 normal ABDOMEN: abdomen soft, non-tender, normo-active bowel sounds, no masses, no rebound or guarding. BACK: Back is symmetrical on inspection and there is no deformity, no midline tenderness, no CVA tenderness. SKIN: no rashes and no bruising UPPER EXTREMITIES: upper extremities are grossly normal. FROM, nml pulses b/l. LOWER EXTREMITIES: No pitting edema. FROM, nml pulses b/l. NEURO EXAM: Normal sensorium, cranial nerves II-XII grossly intact, normal speech, no gross weakness of arms, no gross weakness of legs. Course 1545: Past medical records reviewed. The patient was evaluated in room C8, and a complete history and physical examination were performed. 1636: I reviewed the patient's records from February of this year, including holter monitor and Dobutamine stress Echo. Reviewed cardiac cath from July of 2017, showed 10% ostial LAD plaque, otherwise normal coronary arteries. 1746: I reviewed the patient's case with Pastora Schumacher [facility] Hospitalist CHRISTEL. She will evaluate the patient for further management. Administered Medications Discontinued Medications Al Hydrox/Mg Hydrox/Simethicone (Maalox) 15 ml PO NOW STA Stop: 04/22/18 16:52 Last Admin: 04/22/18 17:15 Dose: Not Given Documented by: [id number] Estradiol (Estrace) 2 mg PO DAILY NANDA Stop: 05/23/18 08:59 Last Admin: 04/23/18 07:30 Dose: 2 mg Documented by: [id number] Famotidine (Pepcid 20mg Iv Push) 20 mg IV ONE STA Stop: 04/22/18 16:53 Last Admin: 04/22/18 17:15 Dose: Not Given Documented by: [id number] Furosemide (Lasix) 40 mg PO QAM NANDA Stop: 05/23/18 08:59 Last Admin: 04/23/18 07:29 Dose: 40 mg Documented by: [id number] Lorazepam (Ativan) 0.5 mg in 1 mls @ 1 mls/min IV NOW STA Stop: 04/22/18 16:52 Last Admin: 04/22/18 17:14 Dose: 1 mls/min Documented by: [id number] Ketorolac Tromethamine (Toradol) 15 mg IV NOW STA Stop: 04/22/18 16:52 Last Admin: 04/22/18 17:14 Dose: 15 mg Documented by: [id number] Losartan Potassium (Cozaar) 25 mg PO QAM NANDA Stop: 05/23/18 08:59 Last Admin: 04/23/18 07:29 Dose: 25 mg Documented by: [id number] Metoprolol Tartrate (Lopressor) 12.5 mg PO BID NANDA Stop: 05/22/18 20:59 Last Admin: 04/23/18 07:26 Dose: 12.5 mg Documented by: [id number] Admin: 04/22/18 20:59 Dose: 12.5 mg Documented by: [id number] Morphine Sulfate (Morphine Sulfate) 2 mg IV Q6H PRN PRN Reason: Severe Pain Stop: 05/06/18 19:55 Last Admin: 04/23/18 07:26 Dose: 2 mg Documented by: [id number] Admin: 04/22/18 21:22 Dose: 2 mg Documented by: [id number] Potassium Chloride (Klor-Con M20) 40 meq PO NOW STA Stop: 04/22/18 18:40 Last Admin: 04/22/18 21:21 Dose: 40 meq Documented by: [id number] Potassium Chloride (Klor-Con M20) 20 meq PO QAM NANDA Stop: 05/23/18 08:59 Last Admin: 04/23/18 07:30 Dose: 20 meq Documented by: [id number] Medical Decision Making Differential Diagnosis Differential diagnosis: Etiologies such as shingles, musculoskeletal pain, pericarditis, myocarditis, cardiac ischemia, pericardial tamponade, pneumonia, pneumothorax, pleural effusion, hemothorax, pleurisy, aortic pathology, pulmonary embolism, intra-abdominal process, as well as others were considered. Medical Records Attestation: I reviewed the patient's medical records. Home Medications Current Medication List: was personally reviewed by me Laboratory Data Attestation: I reviewed the patient's lab results. Result diagrams: 04/23/18 06:17 04/23/18 06:17 Lab Results 04/22/18 04/22/18 04/22/18 Range/Units 16:00 16:10 16:10 WBC 6.55 (4.8-10.8) K/uL RBC 4.31 (4.2-5.4) M/uL Hgb 14.0 (12.0-16.0) g/dL Hct 39.4 (37-47) % MCV 91.4 (80-100) fL MCH 32.5 (25-34) pg MCHC 35.5 (32-36) g/dL RDW Std Deviation 42.7 (36.4-46.3) fL RDW Coeff of Elvin 12.7 (11.5-14.5) % Plt Count 328 (130-400) K/uL MPV 8.7 (7.4-10.4) fL Immature Gran % (Auto) 0.3 % Neut % (Auto) 51.8 % Lymph % (Auto) 32.5 % [place] % (Auto) 12.8 % Eos % (Auto) 1.8 % Baso % (Auto) 0.8 % Immature Gran # (Auto) 0.02 (0.00-0.02) K/uL Neut # (Auto) 3.39 (1.4-6.5) K/uL Lymph # (Auto) 2.13 (1.2-3.4) K/uL [place] # (Auto) 0.84 H (0.11-0.59) K/uL Eos # (Auto) 0.12 (0-0.5) K/uL Baso # (Auto) 0.05 (0-0.2) K/uL ESR (0-21) mm/hr D-Dimer 420 (0-500) ug/L FEU Sodium 139 (136-145) mmol/L Potassium 3.2 L (3.5-5.1) mmol/L Chloride 104 (98-107) mmol/L Carbon Dioxide 30 (21-32) mmol/L Anion Gap 5.0 (3-11) BUN 9 (7-18) mg/dl Creatinine 0.60 (0.6-1.2) mg/dl Est Cr Clr Drug Dosing 113.1 ml/min Est GFR ( Amer) 119.8 Est GFR (Non-Af Amer) 103.3 BUN/Creatinine Ratio 14.8 (10-20) Glucose 88 (70-99) mg/dl Calcium 8.2 L (8.5-10.1) mg/dl Total Bilirubin 0.3 (0.2-1) mg/dl AST 21 (15-37) U/L ALT 23 (12-78) U/L Alkaline Phosphatase 54 (45-117) U/L Total Creatine Kinase (26-192) U/L Troponin I < 0.015 (0-0.045) ng/ml C-Reactive Protein (0-0.29) mg/dl Total Protein 6.7 (6.4-8.2) gm/dl Albumin 3.2 L (3.4-5.0) gm/dl Globulin 3.5 (2.5-4.0) gm/dl Albumin/Globulin Ratio 0.9 (0.9-2) TSH (0.300-4.500) uIu/ml Specimen Hemolysis 04/22/18 04/22/18 04/23/18 Range/Units 16:10 21:57 06:17 WBC 4.71 L (4.8-10.8) K/uL RBC 4.03 L (4.2-5.4) M/uL Hgb 13.0 (12.0-16.0) g/dL Hct 37.1 (37-47) % MCV 92.1 (80-100) fL MCH 32.3 (25-34) pg MCHC 35.0 (32-36) g/dL RDW Std Deviation 43.0 (36.4-46.3) fL RDW Coeff of Elvin 12.8 (11.5-14.5) % Plt Count 301 (130-400) K/uL MPV 8.7 (7.4-10.4) fL Immature Gran % (Auto) % Neut % (Auto) % Lymph % (Auto) % [place] % (Auto) % Eos % (Auto) % Baso % (Auto) % Immature Gran # (Auto) (0.00-0.02) K/uL Neut # (Auto) (1.4-6.5) K/uL Lymph # (Auto) (1.2-3.4) K/uL [place] # (Auto) (0.11-0.59) K/uL Eos # (Auto) (0-0.5) K/uL Baso # (Auto) (0-0.2) K/uL ESR 14 (0-21) mm/hr D-Dimer (0-500) ug/L FEU Sodium (136-145) mmol/L Potassium (3.5-5.1) mmol/L Chloride (98-107) mmol/L Carbon Dioxide (21-32) mmol/L Anion Gap (3-11) BUN (7-18) mg/dl Creatinine (0.6-1.2) mg/dl Est Cr Clr Drug Dosing ml/min Est GFR ( Amer) Est GFR (Non-Af Amer) BUN/Creatinine Ratio (10-20) Glucose (70-99) mg/dl Calcium (8.5-10.1) mg/dl Total Bilirubin (0.2-1) mg/dl AST (15-37) U/L ALT (12-78) U/L Alkaline Phosphatase (45-117) U/L Total Creatine Kinase 24 L (26-192) U/L Troponin I < 0.015 (0-0.045) ng/ml C-Reactive Protein 0.46 H (0-0.29) mg/dl Total Protein (6.4-8.2) gm/dl Albumin (3.4-5.0) gm/dl Globulin (2.5-4.0) gm/dl Albumin/Globulin Ratio (0.9-2) TSH 2.450 (0.300-4.500) uIu/ml Specimen Hemolysis 04/23/18 Range/Units 06:17 WBC (4.8-10.8) K/uL RBC (4.2-5.4) M/uL Hgb (12.0-16.0) g/dL Hct (37-47) % MCV (80-100) fL MCH (25-34) pg MCHC (32-36) g/dL RDW Std Deviation (36.4-46.3) fL RDW Coeff of Elvin (11.5-14.5) % Plt Count (130-400) K/uL MPV (7.4-10.4) fL Immature Gran % (Auto) % Neut % (Auto) % Lymph % (Auto) % [place] % (Auto) % Eos % (Auto) % Baso % (Auto) % Immature Gran # (Auto) (0.00-0.02) K/uL Neut # (Auto) (1.4-6.5) K/uL Lymph # (Auto) (1.2-3.4) K/uL [place] # (Auto) (0.11-0.59) K/uL Eos # (Auto) (0-0.5) K/uL Baso # (Auto) (0-0.2) K/uL ESR (0-21) mm/hr D-Dimer (0-500) ug/L FEU Sodium 139 (136-145) mmol/L Potassium 3.6 (3.5-5.1) mmol/L Chloride 107 (98-107) mmol/L Carbon Dioxide 27 (21-32) mmol/L Anion Gap 5.0 (3-11) BUN 11 (7-18) mg/dl Creatinine 0.51 L (0.6-1.2) mg/dl Est Cr Clr Drug Dosing 132.5 ml/min Est GFR ( Amer) 126.3 Est GFR (Non-Af Amer) 109.0 BUN/Creatinine Ratio 20.8 H (10-20) Glucose 86 (70-99) mg/dl Calcium 8.0 L (8.5-10.1) mg/dl Total Bilirubin (0.2-1) mg/dl AST (15-37) U/L ALT (12-78) U/L Alkaline Phosphatase (45-117) U/L Total Creatine Kinase (26-192) U/L Troponin I < 0.015 (0-0.045) ng/ml C-Reactive Protein (0-0.29) mg/dl Total Protein (6.4-8.2) gm/dl Albumin (3.4-5.0) gm/dl Globulin (2.5-4.0) gm/dl Albumin/Globulin Ratio (0.9-2) TSH (0.300-4.500) uIu/ml Specimen Hemolysis Imaging Data Attestation: I personally reviewed and interpreted this imaging study as follows: Radiologist's Impression: XR chest 1V portable CLINICAL HISTORY: CHEST PAIN pain COMPARISON STUDY: 09/30/2017 FINDINGS: The bones soft tissues and hemidiaphragms are normal. The cardiomediastinal silhouette is normal. The lungs are clear. The pulmonary vasculature is normal. IMPRESSION: Negative chest. The above report was generated using voice recognition software. It may contain grammatical, syntax or spelling errors. Electronically signed by: Chi Lei M.D. 04/22/2018 4:42 PM ECG Data Attestation: I personally reviewed and interpreted this ECG as follows: Indication: chest pain and SOB/dyspnea Rate (beats per minute): 77 Rhythm: sinus rhythm Findings: no ST depression and no ST elevation Blood Pressure Blood Pressure Findings: Elevated blood pressure MDM Narrative Patient here with concerning story for exertional anginal symptoms over the last 2 days worse than her tonic chest pain which she has been evaluated for previously. I did review prior cardiac records including a cardiac catheterizat ion from last year. I was unable to see the pulmonology records she is also been going to see them and go for additional testing as well. Given concerning story despite negative evaluation so far, I discussed the case with the hospitalist service for additional management and evaluation. Patient's labs and imaging here reassuring and patient hemodynamic stable throughout. I do not suspect ACS given negative troponin after 2 days of pain and negative cardiac catheterization within a year. I do not suspect PE given negative dimer. I do not suspect acute vascular etiology. I do not suspect occult infectious etiology. No evidence of dysrhythmia or ectopy noted on telemetry here. Impression & Plan DAILEY (dyspnea on exertion), Chest pain Discharge Plan Visit Data *Final* Discharge Date/Time: 04/22/18 19:05 Chief Complaint: Cardiac Assessment Stated Complaint: CHEST PAIN FOR 2 DAYS, SOB, ELEVATED HEART RATE ED Provider: Taryn Webster Discharge Problem: DAILEY (dyspnea on exertion), Chest pain Patient Disposition: Admitted As Inpatient Condition: Good Discharge Instructions Interventions: ED Discharge Assessment Last Done: 04/22/18 19:05 Discharge Problem: Chest pain Qualifiers: Chest pain type: unspecified Qualified Code(s): R07.9 - Chest pain, unspecified The scribe's documentation has been prepared under my direction and personally reviewed by me in its entirety. I confirm that the note above accurately reflects all work, treatment, procedures, and medical decision making performed by me.
== END 2018-04-23 12:51 | disposition home or self-care (01) ==
LOC: ED 15:21 → 2N 15:21